=== PATIENT | male | born 1970 | race Caucasian/White ===

== ENCOUNTER 2022-08-10 13:37 | Emergency (ER) | payer MEDICAID, SELFPAY ==
[2022-08-10 13:59] VITALS: BMI 21.5
[2022-08-10 14:02] VITALS: BP 135/80; PULSE 107; RESP 18; TEMP 36.7; O2SAT 97
--- NOTE | 2022-08-10 16:58 | CTR_ITS ---
PROCEDURE INFORMATION: Exam: CT Abdomen And Pelvis Without Contrast Exam date and time: 08/10/2022 5:22 PM Age: 51 years old Clinical indication: Abdominal pain; Generalized TECHNIQUE: Imaging protocol: Computed tomography of the abdomen and pelvis without contrast. Sagittal and coronal reformatted images were created and reviewed. Radiation optimization: All CT scans at this facility use at least one of these dose optimization techniques: automated exposure control; mA and/or kV adjustment per patient size (includes targeted exams where dose is matched to clinical indication); or iterative reconstruction. REPORTING DATA: Count of CT and Cardiac NM exams in prior 12 months: This patient has received 0 known CTs and 0 known cardiac nuclear medicine studies in the 12 months prior to the current study. COMPARISON: CT angio chest PE protcl [id number] 06/02/2016 5:35 PM RADIATION DOSE METRICS: Total DLP (mGy-cm): 448 FINDINGS: Limitations: Evaluation of solid organs and vasculature is limited without intravenous contrast. Lungs: Visualized lungs are clear. Pleural spaces: No pleural effusion. Heart: Visualized portions of the heart are unremarkable. Liver: The liver is unremarkable. Gallbladder and bile ducts: The gallbladder is unremarkable. No biliary ductal dilatation. Pancreas: The pancreas is unremarkable. No pancreatic ductal dilatation. Spleen: The spleen is unremarkable. Adrenal glands: The right and left adrenal glands are unremarkable. Kidneys and ureters: The right and left kidneys are unremarkable. The right and left ureters are unremarkable. Stomach and bowel: Scattered diverticula in the colon. No evidence for diverticulitis. Appendix: The appendix is visualized and is unremarkable. No findings to suggest acute appendicitis. Intraperitoneal space: No free intraperitoneal air. No ascites. No loculated fluid collections to suggest an abscess. Vasculature: Mild atherosclerotic changes in the visualized arteries. No evidence for aortic aneurysm. Lymph nodes: No lymphadenopathy. Urinary bladder: Diffuse, mild wall thickening of the bladder. Reproductive: The prostate gland is mildly enlarged. Nonspecific parenchymal calcifications in the prostate gland. Bones/joints: Degenerative changes in the spine, sacroiliac joints, and hips. Mild spinal canal stenosis at L2-L3 through L5-S1. Multilevel foraminal stenosis of varying severity in the visualized spine. Grade I anterolisthesis of L4 on L5, likely due to facet degenerative change. Soft tissues: No acute abnormality in the extra-abdominal soft tissues. CT/CT abdomen pelvis wo con [id number] IMPRESSION: 1. Diffuse, mild wall thickening of the bladder. In the correct clinical setting, this may suggest cystitis. Recommend correlation with laboratory findings. Alternatively, this may be secondary to chronic outlet obstruction. 2. Scattered diverticula in the colon. No evidence for diverticulitis. 3. Incidental/nonacute findings are listed in the report.
[2022-08-10 17:07] LABS: Basophils % 0.9 %; Eosinophils # 0.1 10^3/uL (0.0-0.8); Eosinophils % 2.1 %; Hematocrit 47.9 % (42.0-52.0); Hemoglobin 16.2 g/dL (11.7-16.6); Lymphocytes # 1.2 10^3/uL (0.8-4.8); Lymphocytes % 25.3 %; Mean Corpuscular HGB Conc 33.8 g/dL (30.0-36.0); Mean Corpuscular Hemoglobin 31.8 pg (28.0-34.0); Mean Corpuscular Volume 94.1 fl (80-94); Mean Platelet Volume 8.7 fL (7.4-10.4); Monocytes # 0.3 10^3/uL (0.2-0.9); Monocytes % 7.1 %; Neutrophils # 3.01 10^3/uL (1.8-7.7); Neutrophils % 64.4 %; Nucleated Red Blood Cells % 0 %; Platelet Count 220 10^3/cmm (130-400); Red Blood Count 5.09 10^6/uL (4.1-5.3); White Blood Count 4.7 10^3/uL (4.0-10.0)
--- NOTE | 2022-08-10 17:22 | ED_ITS ---
Documented by User: Umer Roblero DO 08/11/22 06:17 HPI - Abdominal Pain General: Chief Complaint: Abdominal Pain Stated Complaint: abd pain, blood in stool Time Seen by Provider: 08/10/22 16:56 Source: patient Mode of arrival: ambulatory History of Present Illness: 51-year-old male presents emergency room complaining of 3 weeks of epigastric discomfort he says the occasional black stools with nausea vomiting very weak. States in the last month he has lost 20 pounds unaccounted for has made no effort. Denies any hematochezia melena hematemesis coffee-ground emesis no chest pain no shortness of breath. No dysuria urgency or frequency. Localizes the pain to the epigastric area. MD elicited complaint: abdominal pain Onset (ago): month(s) (1) Pain Consistency: constant Location: Diffuse Severity: moderate Quality: cramping Exacerbating factors: nothing Relieving factors: nothing Associated Symptoms: Denies anorexia, belching, bloating, change in bowel habits, change in stool character, chills, coffee ground emesis, constipation, GI cramping, diarrhea, dyspepsia, dysuria, excessive flatus, fever(s), heartburn, hematochezia, hematuria, hematemesis, fecal incontinence, loose stools, melena, nausea, poor appetite, syncope and vomiting Review of Systems Const: Denies: fever(s), chills, fatigue or malaise ENMT: Denies: throat pain, ear or mastoid pain, nasal discharge or nasal congestion Card: Denies: chest pain, palpitations, irregular heart rhythm, edema or syncope Resp: Denies: dyspnea, productive cough or non-productive cough GI: Reports: abdominal pain; Denies: nausea, vomiting, hematemesis, coffee ground emesis, heartburn, diarrhea, constipation, bloating, GI cramping, belching, excessive flatus, fecal incontinence, change in bowel habits, change in stool character, hematochezia or melena : Denies: dysuria, urinary frequency, urinary urgency or hematuria Musc: Reports: back pain Skin/Breast: Denies: rash or pruritus Physical Exam Const: COMMON NORMALS: no acute distress GENERAL APPEARANCE: cooperative and comfortable ORIENTATION/CONSCIOUSNESS: Yes awake, Yes oriented to person, Yes oriented to place and Yes oriented to time HENMT: COMMON NORMALS: normocephalic, atraumatic and hearing grossly normal bilaterally HEAD & SCALP: normocephalic and atraumatic Resp: COMMON NORMALS: normal respiratory effort, No retractions, No use of accessory muscles and clear to auscultation bilaterally AUSCULTATION: clear to auscultation bilaterally Cardio: COMMON NORMALS: regular rate, regular rhythm and No murmurs present (Cardio) RATE: regular rate RHYTHM: regular rhythm GI: COMMON NORMALS: No hepatosplenomegaly present AUSCULTATION: Yes normoactive bowel sounds PALPATION: Yes Tenderness to palpation present (GI) (Epigastric), No Guarding due to palpation present (GI) and Yes No hepatosplenomegaly present Extremity: COMMON NORMALS: normal to inspection, capillary refill normal, no clubbing, cyanosis or edema, no calf tenderness and no pedal edema Neuro: SENSORIUM/ORIENTATION: Yes oriented to person, Yes oriented to place and Yes oriented to time Skin: COMMON NORMALS: no rashes or lesions noted GENERAL SKIN EXAM: no rashes or lesions noted Course Vital Signs: Vital signs: Vital Signs Temperature 98.1 F 08/10/22 14:02 Pulse Rate 72 08/10/22 18:34 Respiratory Rate 18 08/10/22 17:42 Blood Pressure 135/80 08/10/22 14:02 Pulse Oximetry 100 08/10/22 17:42 Oxygen Delivery Me thod Room Air 08/10/22 17:42 MDM - Abdominal Pain Medical Decision Making Care signed out to Dr. Jj at change of shift. See final notes for diagnosis and disposition. Patient presented abdominal pain is likely gastric related he did have black stools after talking to him has been taking Pepto-Bismol likely causing the discoloration his rectal exam here was negative Hemoccult was negative his hemoglobin is normal patient stable for discharge he is to follow-up with PCP and return if worsening. Lab Data 08/10/22 17:02 08/10/22 17:02 Labs/Radiology: Radiology Impressions Abdomen/Pelvis CT 08/10/22 16:58 IMPRESSION: 1. Diffuse, mild wall thickening of the bladder. In the correct clinical setting, this may suggest cystitis. Recommend correlation with laboratory findings. Alternatively, this may be secondary to chronic outlet obstruction. 2. Scattered diverticula in the colon. No evidence for diverticulitis. 3. Incidental/nonacute findings are listed in the report. Laboratory Results WBC 4.7 10^3/uL (4.0-10.0) 08/10/22 17:02 RBC 5.09 10^6/uL (4.1-5.3) 08/10/22 17:02 Hgb 16.2 g/dL (11.7-16.6) 08/10/22 17:02 Hct 47.9 % (42.0-52.0) 08/10/22 17:02 MCV 94.1 fl (80-94) H 08/10/22 17:02 MCH 31.8 pg (28.0-34.0) 08/10/22 17:02 MCHC 33.8 g/dL (30.0-36.0) 08/10/22 17:02 RDW 13.0 % (12.1-15.1) 08/10/22 17:02 Plt Count 220 10^3/cmm (130-400) 08/10/22 17:02 MPV 8.7 fL (7.4-10.4) 08/10/22 17:02 Neut % (Auto) 64.4 % 08/10/22 17:02 Lymph % (Auto) 25.3 % 08/10/22 17:02 [place] % (Auto) 7.1 % 08/10/22 17:02 Eos % (Auto) 2.1 % 08/10/22 17:02 Baso % (Auto) 0.9 % 08/10/22 17:02 Neut # (Auto) 3.01 10^3/uL (1.8-7.7) 08/10/22 17:02 Lymph # (Auto) 1.2 10^3/uL (0.8-4.8) 08/10/22 17:02 [place] # (Auto) 0.3 10^3/uL (0.2-0.9) 08/10/22 17:02 Eos # (Auto) 0.1 10^3/uL (0.0-0.8) 08/10/22 17:02 Baso # (Auto) 0.0 10^3/uL (0.0-0.1) 08/10/22 17:02 Nucleated RBC % (auto) 0 % 08/10/22 17:02 Nucleated RBCs # 0.0 /100WBC 08/10/22 17:02 PT 12.80 SECONDS (12.1-14.9) 08/10/22 17:02 INR 0.93 (0.8-1.2) 08/10/22 17:02 APTT 29.5 SECONDS (23.9-36.7) 08/10/22 17:02 Sodium 133 mmol/L (136-145) L 08/10/22 17:02 Potassium 4.4 mmol/L (3.5-5.1) 08/10/22 17:02 Chloride 97 mmol/L (98-107) L 08/10/22 17:02 Carbon Dioxide 23 mmol/L (22-29) 08/10/22 17:02 Anion Gap 17.4 (5-19) 08/10/22 17:02 BUN 9 mg/dL (6-20) 08/10/22 17:02 Creatinine 0.7 mg/dL (0.7-1.2) 08/10/22 17:02 GFR Calculation 118.4 mL/min (90-130) 08/10/22 17:02 Glucose 90 mg/dL (65-115) 08/10/22 17:02 Calculated Osmolality 274 mOsm/kg (285-295) L 08/10/22 17:02 Calcium 9.3 mg/dL (8.5-10.5) 08/10/22 17:02 Total Bilirubin 0.2 mg/dL (0.15-1.2) 08/10/22 17:02 AST 35 U/L (0-40) 08/10/22 17:02 ALT 43 U/L (0-41) H 08/10/22 17:02 Alkaline Phosphatase 92 U/L (40-130) 08/10/22 17:02 Total Protein 7.5 g/dL (6.6-8.7) 08/10/22 17:02 Albumin 4.4 g/dL (3.5-5.2) 08/10/22 17:02 Globulin 3.1 g/dL (1.3-4.6) 08/10/22 17:02 Lipase 38 U/L (13-60) 08/10/22 17:02 Urine Color Yellow (Yellow) 08/10/22 17:45 Urine Appearance Clear (CLEAR) 08/10/22 17:45 Urine pH 5 (5-7) 08/10/22 17:45 Ur Specific [place] 1.015 (1.005-1.030) 08/10/22 17:45 Urine Protein Neg (Negative) 08/10/22 17:45 Urine Glucose (UA) Norm (Normal) 08/10/22 17:45 Urine Ketones Negative (Negative) 08/10/22 17:45 Urine Blood Neg (Negative) 08/10/22 17:45 Urine Nitrate Negative (Negative) 08/10/22 17:45 Urine Bilirubin Neg (Negative) 08/10/22 17:45 Urine Urobilinogen Neg mg/dL (Negative) 08/10/22 17:45 Ur Leukocyte Esterase Negative (Negative) 08/10/22 17:45 Discharge Plan Discharge Patient Disposition: Home Clinical Impression: Abdominal pain Condition: Stable Discharge Orders: Discharge ED (Routine); Ordered 08/10/22 Ordered By: Corky Jj Referrals: Cb Tilley MD [Primary Care Provider] - 1-3 days Discharge Diet: Advance as tolerated Discharge Activity: Resume usual activity Patient Instructions: Abdominal Pain (ED) Coding Level of Care Code ED End User Consultant for Chg Fwd Documented by User: Corky Jj MD 08/10/22 18:42 HPI - Abdominal Pain General: Chief Complaint: Abdominal Pain Stated Complaint: abd pain, blood in stool Time Seen by Provider: 08/10/22 16:56 History of Present Illness: . Course Vital Signs: Vital signs: Vital Signs Temperature 98.1 F 08/10/22 14:02 Pulse Rate 72 08/10/22 18:34 Respiratory Rate 18 08/10/22 17:42 Blood Pressure 135/80 08/10/22 14:02 Pulse Oximetry 100 08/10/22 17:42 Oxygen Delivery Me thod Room Air 08/10/22 17:42 MDM - Abdominal Pain Medical Decision Making Patient presented abdominal pain is likely gastric related he did have black stools after talking to him has been taking Pepto-Bismol likely causing the discoloration his rectal exam here was negative Hemoccult was negative his h emoglobin is normal patient stable for discharge he is to follow-up with PCP and return if worsening. Medical Records I reviewed the patient's medical records. Lab Data I reviewed the patient's lab results. 08/10/22 17:02 08/10/22 17:02 Labs/Radiology: Radiology Impressions Abdomen/Pelvis CT 08/10/22 16:58 IMPRESSION: 1. Diffuse, mild wall thickening of the bladder. In the correct clinical setting, this may suggest cystitis. Recommend correlation with laboratory findings. Alternatively, this may be secondary to chronic outlet obstruction. 2. Scattered diverticula in the colon. No evidence for diverticulitis. 3. Incidental/nonacute findings are listed in the report. Laboratory Results WBC 4.7 10^3/uL (4.0-10.0) 08/10/22 17:02 RBC 5.09 10^6/uL (4.1-5.3) 08/10/22 17:02 Hgb 16.2 g/dL (11.7-16.6) 08/10/22 17:02 Hct 47.9 % (42.0-52.0) 08/10/22 17:02 MCV 94.1 fl (80-94) H 08/10/22 17:02 MCH 31.8 pg (28.0-34.0) 08/10/22 17:02 MCHC 33.8 g/dL (30.0-36.0) 08/10/22 17:02 RDW 13.0 % (12.1-15.1) 08/10/22 17:02 Plt Count 220 10^3/cmm (130-400) 08/10/22 17:02 MPV 8.7 fL (7.4-10.4) 08/10/22 17:02 Neut % (Auto) 64.4 % 08/10/22 17:02 Lymph % (Auto) 25.3 % 08/10/22 17:02 [place] % (Auto) 7.1 % 08/10/22 17:02 Eos % (Auto) 2.1 % 08/10/22 17:02 Baso % (Auto) 0.9 % 08/10/22 17:02 Neut # (Auto) 3.01 10^3/uL (1.8-7.7) 08/10/22 17:02 Lymph # (Auto) 1.2 10^3/uL (0.8-4.8) 08/10/22 17:02 [place] # (Auto) 0.3 10^3/uL (0.2-0.9) 08/10/22 17:02 Eos # (Auto) 0.1 10^3/uL (0.0-0.8) 08/10/22 17:02 Baso # (Auto) 0.0 10^3/uL (0.0-0.1) 08/10/22 17:02 Nucleated RBC % (auto) 0 % 08/10/22 17:02 Nucleated RBCs # 0.0 /100WBC 08/10/22 17:02 PT 12.80 SECONDS (12.1-14.9) 08/10/22 17:02 INR 0.93 (0.8-1.2) 08/10/22 17:02 APTT 29.5 SECONDS (23.9-36.7) 08/10/22 17:02 Sodium 133 mmol/L (136-145) L 08/10/22 17:02 Potassium 4.4 mmol/L (3.5-5.1) 08/10/22 17:02 Chloride 97 mmol/L (98-107) L 08/10/22 17:02 Carbon Dioxide 23 mmol/L (22-29) 08/10/22 17:02 Anion Gap 17.4 (5-19) 08/10/22 17:02 BUN 9 mg/dL (6-20) 08/10/22 17:02 Creatinine 0.7 mg/dL (0.7-1.2) 08/10/22 17:02 GFR Calculation 118.4 mL/min (90-130) 08/10/22 17:02 Glucose 90 mg/dL (65-115) 08/10/22 17:02 Calculated Osmolality 274 mOsm/kg (285-295) L 08/10/22 17:02 Calcium 9.3 mg/dL (8.5-10.5) 08/10/22 17:02 Total Bilirubin 0.2 mg/dL (0.15-1.2) 08/10/22 17:02 AST 35 U/L (0-40) 08/10/22 17:02 ALT 43 U/L (0-41) H 08/10/22 17:02 Alkaline Phosphatase 92 U/L (40-130) 08/10/22 17:02 Total Protein 7.5 g/dL (6.6-8.7) 08/10/22 17:02 Albumin 4.4 g/dL (3.5-5.2) 08/10/22 17:02 Globulin 3.1 g/dL (1.3-4.6) 08/10/22 17:02 Lipase 38 U/L (13-60) 08/10/22 17:02 Urine Color Yellow (Yellow) 08/10/22 17:45 Urine Appearance Clear (CLEAR) 08/10/22 17:45 Urine pH 5 (5-7) 08/10/22 17:45 Ur Specific [place] 1.015 (1.005-1.030) 08/10/22 17:45 Urine Protein Neg (Negative) 08/10/22 17:45 Urine Glucose (UA) Norm (Normal) 08/10/22 17:45 Urine Ketones Negative (Negative) 08/10/22 17:45 Urine Blood Neg (Negative) 08/10/22 17:45 Urine Nitrate Negative (Negative) 08/10/22 17:45 Urine Bilirubin Neg (Negative) 08/10/22 17:45 Urine Urobilinogen Neg mg/dL (Negative) 08/10/22 17:45 Ur Leukocyte Esterase Negative (Negative) 08/10/22 17:45 Discharge Plan Discharge Patient Disposition: Home Clinical Impression: Abdominal pain Condition: Stable Discharge Orders: Discharge ED (Routine); Ordered 08/10/22 Ordered By: Corky Jj Referrals: Cb Tilley MD [Primary Care Provider] - 1-3 days Discharge Diet: Advance as tolerated Discharge Activity: Resume usual activity Patient Instructions: Abdominal Pain (ED) Coding Level of Care Code ED End User Consultant for Ghulam Fitzgerald
[2022-08-10 17:33] LABS: INR 0.93 (0.8-1.2); Partial Thromboplastin Time 29.5 SECONDS (23.9-36.7)
[2022-08-10 17:34] LABS: Alanine Aminotransferase 43 U/L (0-41); Albumin Level 4.4 g/dL (3.5-5.2); Alkaline Phosphatase 92 U/L (40-130); Anion Gap 17.4 (5-19); Aspartate Amino Transferase 35 U/L (0-40); Blood Urea Nitrogen 9 mg/dL (6-20); Calcium 9.3 mg/dL (8.5-10.5); Carbon Dioxide 23 mmol/L (22-29); Chloride 97 mmol/L (98-107); Globulin 3.1 g/dL (1.3-4.6); Glomerular Filtration Rate 118.4 mL/min (90-130); Glucose 90 mg/dL (65-115); Lipase 38 U/L (13-60); Osmolality Calculated 274 mOsm/kg (285-295); Potassium 4.4 mmol/L (3.5-5.1); Sodium 133 mmol/L (136-145); Total Bilirubin 0.2 mg/dL (0.15-1.2); Total Protein 7.5 g/dL (6.6-8.7)
[2022-08-10 17:42] VITALS: RESP 18; O2SAT 100
[2022-08-10 17:51] LABS: Add Urine Microscopic? NO; Charge for UA Resulting for Rev
[2022-08-10 18:19] LABS: Bilirubin Urine Neg (Negative); Blood Urine Neg (Negative); Glucose Urine UA Norm (Normal); Ketones Urine Negative (Negative); Leukocyte Esterase Urine Negative (Negative); Nitrate Urine Negative (Negative); Protein Urine Neg (Negative); Specific Gravity, Urine 1.015 (1.005-1.030); Urine Appearance Clear (CLEAR); Urine Color Yellow (Yellow); Urobilinogen Urine Neg (Negative); pH Urine 5 (5-7)
[2022-08-10 18:34] VITALS: PULSE 72
== END 2022-08-10 18:50 | disposition home or self-care (01) ==
PROVIDERS: Family Medicine; Emergency Provider Emergency Medicine; PCP Family Medicine
DX: R10.13 Epigastric pain (principal)
CPT/HCPCS: 74176; 80053; 81003; 83690; 85025; 85610; 85730; 99284

== ENCOUNTER 2023-07-06 18:55 | Inpatient (IN) | payer MEDICAID, SELFPAY ==
[2023-07-06] VITALS (8 sets, daily range): BP systolic 84–126; BP diastolic 52–90; PULSE 91–116; RESP 13–24; TEMP 36.6; O2SAT 91–100; BMI 21.5
[2023-07-06] MEDS: sodium chloride 0.9% 1,000 ML 999 ML IV ×3 (20:07→22:53)
[2023-07-06 20:27] LABS: Alanine Aminotransferase 88 U/L (0-41); Albumin Level 4.3 g/dL (3.5-5.2); Alkaline Phosphatase 88 U/L (40-130); Anion Gap 35.7 (5-19); Aspartate Amino Transferase 78 U/L (0-40); Calcium 8.6 mg/dL (8.5-10.5); Carbon Dioxide 15 mmol/L (22-29); Chloride 87 mmol/L (98-107); Creatinine Clr Calc Pharmacy 9.6416; Globulin 4.2 g/dL (1.3-4.6); Glomerular Filtration Rate 6.3 mL/min (90-130); Glucose 102 mg/dL (65-115); Lipase 28 U/L (13-60); Potassium 4.7 mmol/L (3.5-5.1); Sodium 133 mmol/L (136-145); Total Bilirubin 0.5 mg/dL (0.15-1.2); Total Protein 8.5 g/dL (6.6-8.7)
[2023-07-06 20:31] LABS: Basophils % 0.4 %; Hematocrit 41.8 % (37-53); Lymphocytes # 0.3 10^3/uL (0.8-4.8); Lymphocytes % 3.7 %; Mean Corpuscular Hemoglobin 32.3 pg (27-33); Mean Platelet Volume 10.1 fL (7.4-10.4); Monocytes % 25.4 %; Neutrophils # 5.51 10^3/uL (1.8-7.7); Neutrophils % 70.2 %; Nucleated Red Blood Cells % 0 %; Platelet Count 199 10^3/cmm (157-399); Red Cell Distribution Width 13.2 % (12.1-15.1); White Blood Count 7.84 10^3/uL (3.29-11.43)
--- NOTE | 2023-07-06 20:31 | XRR_ITS ---
PROCEDURE INFORMATION: Exam: XR Abdomen Exam date and time: 07/06/2023 9:07 PM Age: 52 years old Clinical indication: Abdominal pain; Generalized; Additional info: Abd pain TECHNIQUE: Imaging protocol: Radiologic exam of the abdomen. Views: Frontal supine view of the abdomen. 1 View. COMPARISON: CT abdomen pelvis con [id number] 08/10/2022 5:22 PM FINDINGS: Gastrointestinal tract: Multiple loops of dilated small bowel measuring up to 3 cm with relative paucity of air within the colon concerning for small bowel obstruction. Bones/joints: No evidence of acute osseous abnormality. XR/XR abdomen 1V* [id number] IMPRESSION: 1. Findings concerning for small bowel obstruction. Consider correlation with CT for further detail.
--- NOTE | 2023-07-06 20:56 | W.ED.ABDPA2 ---
HPI - Abdominal Pain General: Chief Complaint: Abdominal Pain Stated Complaint: Abd Pain Time Seen by Provider: 07/06/23 18:59 History of Present Illness: 52-year-old male presents emergency department via EMS personnel. EMS personnel state that patient is homeless and was laying on the ground waiting for them upon their arrival. Patient states that he has generalized abdominal pain and has had diarrhea for a very long time. He states that he smokes a pack and 1/2 to 2 packs of cigarettes daily and that he also ingested methamphetamine earlier today and yesterday. He denies chest pain or shortness of breath. He states he thinks he has not urinated as much as he normally does. Associated Symptoms: Reports nausea; Denies vomiting Review of Systems General: Reports: 10 or more systems reviewed and unremarkable except in HPI and below GI: Reports: abdominal pain and nausea; Denies: vomiting : Reports: oliguria [facility] ED PFSH: Medical History (Updated 07/06/23 @ 23:13 by Russel Milligan MD) Tobacco use disorder Alcohol use disorder Hypertension Surgical History (Updated 07/06/23 @ 23:15 by Russel Milligan MD) History of repair of ACL Family History (Updated 07/06/23 @ 23:16 by Russel Milligan MD) Mother Stroke Social History (Updated 07/06/23 @ 23:16 by Russel Milligan MD) Smoking and tobacco/nicotine status: current every day tobacco/nicotine user Alcohol intake: current Substance/Drug Use: current Physical Exam Narrative: EXAM NARRATIVE: Constitutional: the patient appears malodorous and unkept. Well nourished and of normal development. Vital signs as documented. No acute distress at present. Alert and oriented-to person, place, time and situation. Head, eyes, ears, nose, mouth, throat: Normocephalic, atraumatic. Pupils-equal, round, reactive to light. No scleral icterus. Normal-appearing external ears. Normal appearing nasal turbinates, no drainage. No obvious oral lesions, posterior oropharynx without erythema or exudates. Neck: Supple, trachea is midline, no lymphadenopathy, no jugular venous distension, thyromegaly, or carotid bruits. Carotid upstrokes are brisk bilaterally. Lungs: clear to auscultation to all lung maharaj. Symmetrical rise and fall of chest, no obvious signs of increased work of breathing at present. Cardiac: Regular rate and rhythm, positive S1, S2. No murmurs, rubs or gallops that I can appreciate Abdomen: Soft, mildly to palpation, hypo-active bowel sounds to all quadrants. No palpable masses, no organomegaly and abdominal bruits. Extremities: 2+ pulses in the upper extremities that are equal bilaterally, 2+ pulses in the lower extremities that are equal bilaterally. Non-edematous. Moves all extremities well, sensation to all extremities are noted. Skin: Warm, dry, intact. Course Vital Signs: Vital signs: Vital Signs Temperature 97.8 F 07/06/23 19:00 Pulse Rate 96 07/06/23 22:37 Respiratory Rate 13 07/06/23 22:37 Blood Pressure 84/52 07/06/23 22:37 Pulse Oximetry 98 07/06/23 22:05 Oxygen Delivery Me thod Room Air 07/06/23 19:00 MDM - Abdominal Pain Medical Decision Making Physical exam completed and documented I did obtain a CBC and a CMP which are essentially unremarkable, lipase was normal at 28, plain film of the abdomen did demonstrate concerns for small bowel obstruction. Patient's CMP did return with a BUN of 114 and a creatinine of 8.9 consistent with acute renal failure. Patient's CK level is elevated at 1261 concerning for rhabdomyolysis, the patient has received 2 L of IV fluid and I have contacted the hospitalist to request admission for additional evaluation treatment and care. Patient did receive a renal ultrasound, which did not demonstrate any acute obstruction. Patient does appear to be infested with bedbugs and although a CT abdomen pelvis would be extremely beneficial I did discuss with the hospital physician that we would have to delay obtaining the CT abdomen pelvis as it would shut down access and use to our CT scanner for the remainder of the emergency department until it was properly sanitized by an cognos report developer, this information was provided by the life science technician. I did request placement of a NG tube and have consulted Dr. Dee for general surgery. Medical Records I reviewed the patient's medical records. Lab Data I reviewed the patient's lab results. 07/06/23 20:05 07/06/23 20:05 Labs/Radiology: Radiology Impressions Abdomen X-Ray 07/06/23 20:31 IMPRESSION: 1. Findings concerning for small bowel obstruction. Consider correlation with CT for further detail. Laboratory Results WBC 7.84 10^3/uL (3.29-11.43) 07/06/23 20:05 RBC 4.40 10^6/uL (3.85-5.65) 07/06/23 20:05 Hgb 14.20 g/dL (11.27-16.99) 07/06/23 20:05 Hct 41.8 % (37-53) 07/06/23 20:05 MCV 95.0 fl (82-101) 07/06/23 20:05 MCH 32.3 pg (27-33) 07/06/23 20:05 MCHC 34.0 g/dL (30-55) 07/06/23 20:05 RDW 13.2 % (12.1-15.1) 07/06/23 20:05 Plt Count 199 10^3/cmm (157-399) 07/06/23 20:05 MPV 10.1 fL (7.4-10.4) 07/06/23 20:05 Neut % (Auto) 70.2 % 07/06/23 20:05 Lymph % (Auto) 3.7 % 07/06/23 20:05 [place] % (Auto) 25.4 % 07/06/23 20:05 Eos % (Auto) 0.0 % 07/06/23 20:05 Baso % (Auto) 0.4 % 07/06/23 20:05 Neut # (Auto) 5.51 10^3/uL (1.8-7.7) 07/06/23 20:05 Lymph # (Auto) 0.3 10^3/uL (0.8-4.8) L 07/06/23 20:05 [place] # (Auto) 2.0 10^3/uL (0.2-0.9) H 07/06/23 20:05 Eos # (Auto) 0.0 10^3/uL (0.0-0.8) 07/06/23 20:05 Baso # (Auto) 0.0 10^3/uL (0.0-0.1) 07/06/23 20:05 Nucleated RBC % (auto) 0 % 07/06/23 20: Nucleated RBCs # 0.0 /100WBC 07/06/23 20:05 D-Dimer 2.49 ug/mLFEU (0-0.59) H 07/06/23 22:48 Sodium 133 mmol/L (136-145) L 07/06/23 20:05 Potassium 4.7 mmol/L (3.5-5.1) 07/06/23 20:05 Chloride 87 mmol/L (98-107) L 07/06/23 20:05 Carbon Dioxide 15 mmol/L (22-29) L 07/06/23 20:05 Anion Gap 35.7 (5-19) H 07/06/23 20:05 BUN 114 mg/dL (6-20) H* D 07/06/23 20:05 Creatinine 8.9 mg/dL (0.7-1.2) H* 07/06/23 20:05 GFR Calculation 6.3 mL/min (90-130) L 07/06/23 20:05 Glucose 102 mg/dL (65-115) 07/06/23 20:05 Calculated Osmolality 312 mOsm/kg (285-295) H 07/06/23 20:05 Lactic Acid Cancelled 07/06/23 22:48 Calcium 8.6 mg/dL (8.5-10.5) 07/06/23 20:05 Total Bilirubin 0.5 mg/dL (0.15-1.2) 07/06/23 20:05 AST 78 U/L (0-40) H 07/06/23 20:05 ALT 88 U/L (0-41) H 07/06/23 20:05 Alkaline Phosphatase 88 U/L (40-130) 07/06/23 20:05 Creatine Kinase 1261 U/L (39-308) H* 07/06/23 20:05 Total Protein 8.5 g/dL (6.6-8.7) 07/06/23 20:05 Albumin 4.3 g/dL (3.5-5.2) 07/06/23 20:05 Globulin 4.2 g/dL (1.3-4.6) 07/06/23 20:05 Lipase 28 U/L (13-60) 07/06/23 20:05 Procalcitonin Cancelled 07/06/23 22:48 All radiology interpretation(s) finalized by discharge EKG Data EKG 1: Interpretation: Twelve-lead EKG obtained at 2123 and reviewed at 212 demonstrates sinus rhythm ventricular rate 90, DC interval 160, QRS duration 102, QT [address] elevation or depression at present. Discharge Plan Discharge Patient Disposition: Admitted As Inpatient Admit Provider: Russel Milligan Clinical Impression: Acute renal failure, Methamphetamine abuse, Abdominal pain, Continuous tobacco abuse, Acute renal failure due to rhabdomyolysis Condition: Stable Coding Level of Care Code ED Fixer Boarding Room for Ghulam Fitzgerald
[2023-07-06 20:57] LABS: Slide Review Slide Review Perform
[2023-07-06 21:01] LABS: Osmolality Calculated 312 mOsm/kg (285-295)
[2023-07-06 21:02] LABS: Blood Urea Nitrogen 114 mg/dL (6-20)
--- NOTE | 2023-07-06 21:18 | ECG_ITS ---
[facility] Test Date: 2023-07-06 Pat Name: Rei Aponte Department: Room: Gender: Male Well Logger: : 1970 Requested By: Arie Schaefer Order Number: [id number] Villanueva MD: Jani Haji M.D. Measurements Intervals [place] Rate: 90 P: 82 TN: 160 QRS: 86 QRSD: 102 T: 82 QT: 376 QTc: 461 Interpretive Statements SINUS RHYTHM Compared to ECG 06/04/2016 05:58:25 Early repolarization no longer present Electronically Signed On 07-08-2023 17:03:59 CDT by Jani Haji M.D. [id number]
--- NOTE | 2023-07-06 21:28 | USR_ITS ---
PROCEDURE INFORMATION: Exam: US Retroperitoneal; Complete; Kidneys and Bladder Exam date and time: 07/06/2023 10:21 PM Age: 52 years old Clinical indication: Other: Chronic abdominal pain and diarrhea, seen this er multiple times; Patient HX: Homeless , methamphetamine use, patient is currently infected with bed bugs, has not been treated for bed bugs at time of this exam. Patient had prior CT of abdomen and pelvis dated 08/10/2022 = inflammation of the urinary bladder. ; Additional info: Mark TECHNIQUE: Imaging protocol: Real-time ultrasound of the retroperitoneum with image documentation. Complete exam focused on the kidneys and bladder. COMPARISON: CT abdomen pelvis wo con [id number] 08/10/2022 5:22 PM FINDINGS: Right kidney: Right kidney measures 5.1 x 6.1 x 9.8 cm. No evidence of hydronephrosis. Renal echotexture is unremarkable. Left kidney: Left kidney measures 4.2 x 5.3 x 8.2 cm. No evidence of hydronephrosis. Renal echotexture is unremarkable. Urinary bladder: Prevoid bladder volume measures 17 cc. There is mild diffuse bladder wall thickening. Patient was not able to void despite attempts. Ureteral jets were not visualized. US/US renal BI* [id number] IMPRESSION: 1. No hydronephrosis of either kidney. 2. Diffuse bladder wall thickening, possibly sequela of chronic obstruction or cystitis. Patient was unable to void despite multiple attempts. Consider urologic evaluation.
--- NOTE | 2023-07-06 21:43 | P.HP_ITS ---
Providers/Chief Complaint 2 Primary Care Provider: Cb Tilley MD Chief Complaint: Abd Pain History of Present Illness Rei Aponte is a 52 year old male Medications/Allergies Allergies Allergy/AdvReac Type Severity Reaction Status Date / Time codeine Allergy Unknown Verified 07/06/23 19:05 Vitals/I&O/Wt Last Vital Signs Temp 97.8 F 07/06/23 19:00 Pulse 116 H 07/06/23 21:35 Resp 18 07/06/23 21:35 BP 93/68 07/06/23 21:35 Pulse Ox 94 07/06/23 21:35 O2 Del Method Room Air 07/06/23 19:00 07/06/23 07/06/23 07/06/23 06:59 14:59 22:59 Intake Total 1000 / 1000 Balance 1000 / 1000 Weight last 48 hrs Weight 68.039 kg Data 07/06/23 20:05 07/06/23 20:05 Coding Level of Care Code Acute Code for Chg Fwd
[2023-07-06 21:49] LABS: Creatine Phosphokinase 1261 U/L (39-308)
--- NOTE | 2023-07-06 22:06 | PC.NURSE ---
Patient found up walking around room, kicking door, and trying to removing monitoring equipment and IV. Patient stated he need to take a shit. Patient appeared angry and I informed him I would get him a bedside commode. Call light was in the bed where I had placed it and informed the patient of it's location upon his admission to the ED. I returned with a commode to find patient out of his bed again and sitting on top of the trashcan. No bowel movement had happened in trashcan. Patient placed on commode and back in bed once finished. Patient again informed of use of call light and it's location.
--- NOTE | 2023-07-06 22:46 | XRR_ITS ---
PROCEDURE INFORMATION: Exam: XR Abdomen Exam date and time: 07/06/2023 11:20 PM Age: 52 years old Clinical indication: Device placement; Gi device; Nasogastric tube; Additional info: Post-ng placement TECHNIQUE: Imaging protocol: Radiologic exam of the abdomen. Views: Frontal supine view of the abdomen. 1 View. COMPARISON: CR (ABDOMEN, ) 07/06/2023 9:07 PM FINDINGS: Tubes, catheters and devices: Nasogastric tube ends in the stomach. Gastrointestinal tract: No gastric distension. Scattered gas within the visualized small bowel. Bones/joints: Unremarkable. XR/XR abdomen 1V* [id number] IMPRESSION: NG tube ends in the stomach
[2023-07-06 22:53] LABS: Lactic Sepsis W/Reflex 1.2 mmol/L (0.5-2.2)
--- NOTE | 2023-07-06 22:54 | P.HP_ITS ---
Providers/Chief Complaint 2 Primary Care Provider: Cb Tilley MD Chief Complaint: Abd Pain History of Present Illness Rei Aponte is a 52 year old male with a past medical history of tobacco use disorder, alcohol use disorder, methamphetamine use disorder, and hypertension who presents emergency department with abdominal pain x 7 days. Patient is awake and alert but quite tangential at times making his history seems unreliable. He states he thinks he has an ulcer stomach that is progressively moved down to his kidneys. He rates the pain 50 out of 10 initially. He states that it has progressively worsened daily for the past week. Endorses associated symptoms of diarrhea. He notes that he took some methamphetamines orally before calling EMS today. He called EMS because the pain got so severe. In the emergency department, he was initially found to have soft blood pressure and was tachycardic. Labs revealed a fairly unremarkable CBC, renal failure with BUN 114, creatinine 8.9, HAGMA with bicarb of 15, transaminitis, and markedly elevated procalcitonin. Renal ultrasound was obtained to rule out hydronephrosis or obstruction which was preliminarily negative for rehabilitation therapy technician. Plain film of the abdomen was concerning for small bowel obstruction. Per ED provider, patient is unable to have CT scan this evening as he was found to have bedbugs and this would require the CT scan to be down for fumigation/cleaning. General surgery was consulted by ED provider and okay with admission with plans to get CT scan later when approved by radiology. Recommended NG tube placement. Patient denies any prior history of small bowel obstructions. Denies prior abdominal surgeries. Patient reports his only medical history is hypertension. He is not taking any medications. He reports he smokes 1 to 2 packs daily. He states he drinks 30 beers every 2 days. He states that he does not have withdrawal problems because he is always drunk. He reports he uses methamphetamines but orally. Denies injecting. Per initial report, patient was reportedly homeless. He denies SI on my evaluation. He tells me [place] a [place] but likes to walk around barefoot in the [place]. Review of Systems 2 Narrative: A complete review of systems was obtained and is negative except as stated in HPI. Medications/Allergies Allergies Allergy/AdvReac Type Severity Reaction Status Date / Time codeine Allergy Unknown Verified 07/06/23 19:05 PFSH Acute 2 PFSH: Medical History (Updated 07/06/23 @ 23:13 by Russel Milligan MD) Tobacco use disorder Alcohol use disorder Hypertension Surgical History (Updated 07/06/23 @ 23:15 by Russel Milligan MD) History of repair of ACL Family History (Updated 07/06/23 @ 23:16 by Russel Milligan MD) Mother Stroke Social History (Updated 07/06/23 @ 23:16 by Russel Milligan MD) Smoking and tobacco/nicotine status: current every day tobacco/nicotine user Alcohol intake: current Substance/Drug Use: current Vitals/I&O/Wt Last Vital Signs Temp 97.8 F 07/06/23 19:00 Pulse 96 07/06/23 22:37 Resp 13 07/06/23 22:37 BP 84/52 07/06/23 22:37 Pulse Ox 98 07/06/23 22:05 O2 Del Method Room Air 07/06/23 19:00 07/06/23 07/06/23 07/06/23 06:59 14:59 22:59 Intake Total 1000 / 1000 Balance 1000 / 1000 Weight last 48 hrs Weight 68.039 kg Physical Exam 2 Narrative: General: Patient is awake. Conversational. Seems to respond to external stimuli at times. Head: Mucous membranes are dry. Cachectic appearing. Frail-appearing. Neck: No JVD. Cardiovascular: Tachycardic. No gallops. No murmurs. No peripheral edema. Lungs: Breath sounds are diminished bilateral bases, no use of accessory muscles, no crackles or wheezes. Skin: No jaundice. Has multiple contusions on lower extremities. Skin is overall poorly kept. Abdomen: Hyperactive bowel sounds. Tender to palpation all 4 quadrants. Extremities: No cyanosis or clubbing. Musculoskeletal: Poor muscular development, normal range of motion, no swollen or erythematous joints. Neurological: Moves all 4 extremities. No myoclonus. Data 07/06/23 20:05 07/06/23 20:05 A&P Assessment and plan (1) Severe sepsis: Presentation consistent with severe sepsis Source unclear, unable to proceed with CT imaging presently due to bedbug situation Consider CT C/A/P after approved by radiology Blood cultures x 2 collected Check stool studies given diarrhea, although this could be from a SBO Sirs: Tachycardia with heart rate 116, tachypnea with respiratory rate 24 Endorgan damage: Renal failure MRSA swab Check procalcitonin Start broad-spectrum antibiotics with vancomycin and Zosyn Telemetry monitoring (2) Acute renal failure: Associated with high anion gap metabolic acidosis, hyponatremia/hypochloremia Admission BUN/creatinine 114/8.9 (previously 9/0.7 on 08/10/22) CK only mildly elevated 1261 Start progressive bicarb drip Follow-up final renal ultrasound Strict I's and O's via Dahl catheter Daily weights Check urinalysis Check urine electrolytes Will likely need nephrology consult pending response to treatment Qualifiers: Acute renal failure type: unspecified Qualified Code(s): N17.9 - Acute kidney failure, unspecified (3) Abdominal pain: Plain films concerning for possible SBO Diarrhea noted General surgery consulted by ED NG tube recommended by general surgery Lactate within normal limits Plan for CT when possible NG tube recommended by general surgery N.p.o. Antiemetics as needed Analgesics as needed Qualifiers: Abdominal location: generalized Qualified Code(s): R10.84 - Generalized abdominal pain (4) Alcohol use disorder: Reports history of withdrawal, currently drinking 30 beers every 2 days Start CIWA protocol Vitamin, thiamine, folic acid (5) Methamphetamine abuse: Last use was earlier today Would benefit from cessation (6) Infestation by bed bug: Contact precautions Topical steroids and antihistamines as needed for symptomatic care (7) Tobacco use disorder: He would benefit from tobacco cessation (8) Hypertension: Currently soft blood pressure At risk for shock given severe sepsis Monitor blood pressure and other vitals closely (9) Homelessness: Patient social situation including housing remains somewhat unclear Case management consultation Plan DVT prophylaxis: SCD for now CODE STATUS: Assume full code Attestations 2 Medical Necessity Statement*: Patient presents with abdominal pain, found to have multiple abnormalities including severe sepsis from somewhat unclear source, possible small bowel obstruction, severe renal failure, multiple other metabolic derangements with expected hospitalization to cross 2 midnights for IV antibiotics, IV hydration, general surgery evaluation, and supportive care. Critical Care Time: The high probability of a clinically significant, sudden or life threatening deterioration of the patient's circulatory systems with severe sepsis, renal failure system(s) required my full and direct attention, intervention and personal management. The critical care time is as shown. This time is in addition to time spent performing any reported procedures but includes the following: [x] Data and vital sign review and interpretation [x] Patient assessment, examination and intervention [x] Documentation [x] Medication orders and management Critical Care Time (min): 60 Coding Level of Care Code Acute Code for Chg Fwd Diagnoses Severe sepsis A41.9; R65.20 Acute renal failure N17.9 Acute renal failure type: unspecified Abdominal pain R10.84 Abdominal location: generalized Alcohol use disorder F10.90 Methamphetamine abuse F15.10 Infestation by bed bug B88.8 Tobacco use disorder F17.200 Hypertension I10 Homelessness Z59.00
[2023-07-06 23:15] LABS: D Dimer 2.49 ug/mLFEU (0-0.59)
[2023-07-06] MEDS: ondansetron 2 mg/ML SDV 2 mL 4 MG IVP (23:24)
--- OUTSIDE RECORDS SUMMARY | 2023-07-06 23:29 | XMS_ITS | Continuity of Care Document ---
Author Name Unknown Organization [facility] Address [address] [id number] [address] Phone Care Team Providers Care Cigar Head Holer Name Role Phone Unavailable Unavailable Unavailable Unavailable Unavailable Unavailable Medications Medication Instructions Dosage Effective Dates (start - stop) Status Comments hydrocodone 5 mg-acetaminophen 325 mg tablet take 1 tablet by oral route every 6 hours as needed for pain for post-op pain 1.00 tablet - Active lisinopril 2.5 mg tablet take 1 tablet by oral route every day 2.5 MG - Active Procedures Procedure Date Limited Oral Evaluation ??? Problem Focu sed Intraoral ??? Periapical First Film Extraction, Erupted Tooth Or Exposed Syeda t (Elevati Limited oral eval, x-ray & 1st extractio n $184 EDR Approval Note No Work Today/No Charge Advance Directives Directive Yes / No Effective Date File Name Resuscitation Not Answered N/A N/A Life Support Not Answered N/A N/A Intubation Not Answered N/A N/A Antibiotics Not Answered N/A N/A IV Fluid Support Not Answered N/A N/A Tube Feed Not Answered N/A N/A Other Directive N/A N/A WARNING:The information contained in this section is historical and is provided for information only and does not constitute a legal document or any assurance that the information is still accurate. Please verify the information with the villagomez of the legal document before using it for clinical purposes. Encounters Encounter Description Practice Location Reason(s) For Visit Diagnoses Date Provider Providers Copied on Encounter [facility], [id number] [facility], [place], [place], [id number], [place] tel:[phone] [facility] Dental examination 3 No Information [facility], [id number] [facility], [place], [place], [id number], [place] tel:[phone] [facility] Dental examination 3 No Information Family History Family Member Type Diagnosis Age At Onset No Information Payers Payer name Insurance type Covered constitution party ID Authoriza tion(s) No Information Social History Type Description Quantity Date Captured Comments Alcohol Use Details Caffeine Use Details Unknown Tobacco Use Status No Information Smoking Status Current every day smoker Smoking Tobacco Use Details Cigarette: No Details Available Cigarette: 0 Packs per day Sex Male Chief Complaint And Reason For Visit No Information Reason For Referral Reason For Referral No Information History Of Present Illness Encounter Date Complaint History Of Prese nt Illness No Information Functional Status Date Functional Assessmen t No Information Instructions Date Instruction Additional Infor mation No Information Assessments Type Assessment Date No Information Patient Care Teams Name Effective Dates (start - stop) Status Members No Information
[2023-07-06 23:52] LABS: Add Urine Microscopic? YES; Bilirubin Urine 1+ (Negative); Blood Urine 3+ (Negative); Glucose Urine UA Norm (Normal); Ketones Urine Negative (Negative); Leukocyte Esterase Urine Negative (Negative); Nitrate Urine Negative (Negative); Protein Urine 1+ (Negative); Specific Gravity, Urine 1.025 (1.005-1.030); Urine Appearance Hazy (CLEAR); Urine Color Dark Yellow (Yellow); Urobilinogen Urine Neg (Negative); pH Urine 5 (5-7)
[2023-07-06 23:53] LABS: Add Urine Culture? No; Amorphous Sediment Urine 3+ /hpf; Bacteria Urine 1+ /hpf; Coarse Granular Casts Urine 0-4 /lpf; Mucus Urine 3+ /hpf; RBC Urine 0-4 /hpf (0-2); Sperm Urine 1+ /hpf; Transitional Epi Cells Urine 0-4 /hpf; WBC Urine 0-4 /hpf (0-5)
[2023-07-06 23:54] LABS: Amphetamines Screen Urine Positive (Negative); Barbiturates Screen Urine Negative (Negative); Benzodiazepines Screen Urine Negative (Negative); Cocaine Screen Urine Negative (Negative); Opiate Screen Urine Negative (Negative); PCP Screen Urine Negative (Negative); THC Screen Urine Negative (Negative)
[2023-07-07] VITALS (78 sets, daily range): BP systolic 85–116; BP diastolic 53–85; PULSE 67–121; RESP 12–27; TEMP 36.6–36.8; O2SAT 81–100; BMI 21.7
[2023-07-07] MEDS: vancomycin 1,500 MG/300 ML PIGGYBACK 200 MG IV (01:07)
[2023-07-07] MEDS: LORazepam 2 mg/mL INJ 10 mL MDV IVP (01:07)
[2023-07-07] MEDS: sodium bicarbonate 150 MEQ in dextrose 5% 1,000 ML IV ×3 (01:33→21:39)
[2023-07-07] MEDS: piperacillin-tazobactam 3.375 GM in sodium chloride 0.9% (plus) 50 ML IV ×2 (02:56→13:32)
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
[2023-07-07 04:03] LABS: Basophils % 0.5 %; Hematocrit 34.8 % (37-53); Lymphocytes # 0.4 10^3/uL (0.8-4.8); Lymphocytes % 9.9 %; Mean Corpuscular HGB Conc 32.8 g/dL (30-55); Mean Corpuscular Hemoglobin 31.8 pg (27-33); Mean Corpuscular Volume 97.2 fl (82-101); Mean Platelet Volume 9.9 fL (7.4-10.4); Monocytes # 1.2 10^3/uL (0.2-0.9); Monocytes % 26.8 %; Neutrophils # 2.73 10^3/uL (1.8-7.7); Neutrophils % 62.6 %; Nucleated Red Blood Cells % 0 %; Platelet Count 159 10^3/cmm (157-399); Red Blood Count 3.58 10^6/uL (3.85-5.65); Red Cell Distribution Width 13.2 % (12.1-15.1); White Blood Count 4.36 10^3/uL (3.29-11.43)
[2023-07-07 04:28] LABS: Alanine Aminotransferase 68 U/L (0-41); Albumin Level 3.2 g/dL (3.5-5.2); Alkaline Phosphatase 64 U/L (40-130); Anion Gap 29.3 (5-19); Aspartate Amino Transferase 66 U/L (0-40); Calcium 7.1 mg/dL (8.5-10.5); Carbon Dioxide 15 mmol/L (22-29); Chloride 97 mmol/L (98-107); Creatinine Clr Calc Pharmacy 11.1732; Globulin 3.4 g/dL (1.3-4.6); Glomerular Filtration Rate 7.4 mL/min (90-130); Glucose 98 mg/dL (65-115); Magnesium 2.5 mg/dL (1.7-2.3); Potassium 4.3 mmol/L (3.5-5.1); Slide Review Slide Review Perform; Sodium 137 mmol/L (136-145); Total Bilirubin 0.5 mg/dL (0.15-1.2); Total Protein 6.6 g/dL (6.6-8.7)
[2023-07-07 04:44] LABS: Osmolality Calculated 322 mOsm/kg (285-295)
[2023-07-07 04:45] LABS: Blood Urea Nitrogen 120 mg/dL (6-20); Phosphorus 10.6 mg/dL (2.5-4.5)
[2023-07-07] MEDS: pantoprazole 40 mg SDV IVP (05:23)
[2023-07-07 05:51] LABS: Potassium, Radom Urine 27 mmol/L; Urine Random Sodium 67 mmol/L
[2023-07-07 06:00] LABS: Urine Random Chloride 10 mmol/L
--- OUTSIDE RECORDS SUMMARY | 2023-07-07 06:23 | XMS_ITS | Continuity of Care Document ---
Author Name Unknown Organization [facility] Address [address] [id number] [address] Phone Care Team Providers Care Awning Maker Name Role Phone Unavailable Unavailable Unavailable Unavailable [...] Diagnoses Date Provider Providers Copied on Encounter [facility], [id number] [facility], [place], [place], [id number], [place] tel:[phone] [facility] Dental examination 3 No Information [facility], [id number] [facility], [place], [place], [id number], [place] tel:[phone] [facility] Dental examination 3 [...]
[2023-07-07] MEDS: multivitamin therapeutic Tablet 1 TAB PO (08:50)
[2023-07-07] MEDS: folic acid 1 mg Tablet PO (08:50)
[2023-07-07] MEDS: thiamine 100 mg Tablet PO (08:50)
[2023-07-07 09:04] LABS: Alcohol Level < 10 mg/dL (0-10); Creatine Phosphokinase 985 U/L (39-308)
--- NOTE | 2023-07-07 09:41 | P.CONIM_ITS ---
Providers/Reason For Consult 2 Consulting Physician/Specialty*: kommana/Nephrology Reason for Consult*: ISAURA Attending Physician: Russel Milligan MD Primary Care Provider: Cb Tilley MD History of Present Illness History of Present Illness Rei Aponte is a 52 year old male With past medical history of hypertension, chronic smoker, alcohol use and methamphetamine use, presented to the emergency department due to nausea and abdominal pain going on for few days. Also complained of some diarrhea. In the emergency department abnormal labs included BUN of 114 creatinine of 8.9 serum bicarbonate was low at 15 and has transaminitis. Renal ultrasound without any hydronephrosis. There was question small bowel obstruction on the abdominal x-ray. Patient was supposed to take lisinopril for his blood pressure but was not taking. He is also homeless. Overnight he was started on bicarbonate drip and his creatinine has improved to 7.7. He currently denies any complaints Review of Systems 2 Narrative: Other ROS negative Medications/Allergies Home Medications Medication Instructions Recorded Confirmed Last Taken Type lisinopril 20 mg tablet 20 mg PO BID 07/07/23 07/07/23 Unknown History Allergies Allergy/AdvReac Type Severity Reaction Status Date / Time codeine Allergy Unknown Verified 07/06/23 19:05 Current Medications Generic Name Dose Route Start Last Admin Trade Name Freq PRN Reason Stop Dose Admin Folic Acid 1 mg 07/07/23 09:00 07/07/23 08:50 Folic Acid 1 Mg Tablet PO 1 mg DAILY BLANCA Administration Sodium Bicarbonate 150 meq/ 1,150 mls @ 150 mls/hr 07/07/23 00:22 07/07/23 01:33 Dextrose IV 150 mls/hr .[id number] BLANCA Administration Piperacillin Sod/Tazobactam 50 mls @ 12.5 mls/hr 07/07/23 02:00 07/07/23 08:34 Sod 3.375 gm/ Sodium Chloride IV Infused BID@0200,1400 BLANCA Infusion Lorazepam 2 mg 07/07/23 00:22 07/07/23 01:07 Lorazepam 2 Mg/Ml Inj 10 Ml Mdv IVP 2 mg PRN PRN Administration WITHDRAWAL Protocol Multivitamins Therapeutic 1 tab 07/07/23 09:00 07/07/23 08:50 Multivitamin Therapeutic Tablet PO 1 tab DAILY BLANCA Administration Pantoprazole Sodium 40 mg 07/07/23 06:00 07/07/23 05:23 Pantoprazole 40 Mg Sdv IVP 40 mg Q24H BLANCA Administration Thiamine Mononitrate 100 mg 07/07/23 09:00 07/07/23 08:50 Thiamine 100 Mg Tablet PO 100 mg DAILY BLANCA Administration PFSH Acute 2 PFSH: Medical History (Updated 07/06/23 @ 23:13 by Russel Milligan MD) Tobacco use disorder Alcohol use disorder Hypertension Surgical History (Updated 07/06/23 @ 23:15 by Russel Milligan MD) History of repair of ACL Family History (Updated 07/06/23 @ 23:16 by Russel Milligan MD) Mother Stroke Social History (Updated 07/06/23 @ 23:16 by Russel Milligan MD) Smoking and tobacco/nicotine status: current every day tobacco/nicotine user Alcohol intake: current Substance/Drug Use: current Vitals/I&O/Wt Last Vital Signs Temp 97.8 F 07/07/23 04:00 Pulse 91 07/07/23 08:00 Resp 16 07/07/23 08:00 BP 90/64 07/07/23 08:00 Pulse Ox 100 07/07/23 08:00 O2 Del Method Room Air 07/07/23 08:00 07/06/23 07/07/23 07/07/23 22:59 06:59 14:59 Intake Total 1999 1120 / 3120 50 / 50 Output Total 650 / 650 Balance 1999 470 / 2470 50 / 50 Weight last 48 hrs Weight 68.492 kg Weight 68.492 kg Weight 68.5 kg Weight 68.039 kg Physical Exam 2 Narrative: awake , alert HEENT S1S2 RRR per report Lungs clear per report no edema Urinary Catheter Management: Dahl: Cath Placed During This Visit: yes Reason for Continuing Indwelling Catheter: Accurate Measurement of Urinary Output in Critically Ill Patients Urinary Catheter Date of Insertion: 07/07/23 Urinary Catheter Time of Insertion: 05:21 Data 07/07/23 03:40 07/07/23 03:40 Micro: Microbiology 07/06/23 22:53 Blood Culture - Preliminary Blood SPECIMEN COLLECTED 07/06/23 22:48 Blood Culture - Preliminary Blood SPECIMEN COLLECTED A&P Assessment and plan (1) Acute renal failure: 1. Acute kidney injury: Baseline creatinine was normal about a year ago. Patient now presented with severe ISAURA associated with severe metabolic acidosis and uremia. Etiology likely prerenal in the setting of decreased p.o. intake, rhabdomyolysis. -Agree with bicarbonate infusion until the serum bicarbonate above 20, urine output slowly picking up, renal function improving, no indication for dialysis -Continue to monitor, avoid nephrotoxins and IV contrast studies, 2. Metabolic acidosis: With a high anion gap in the setting of rhabdo and ISAURA, continue bicarbonate drip 3. Rhabdomyolysis: Mild, trend CK levels 4. Hyperphosphatemia: Continue to monitor, should improve once renal function improves 5. History of hypertension, holding lisinopril 6. Question small bowel obstruction, he is n.p.o. with NG tube suction Patient evaluated using audiovisual cart. Time spent 40 minutes. Qualifiers: Acute renal failure type: unspecified Qualified Code(s): N17.9 - Acute kidney failure, unspecified Consult Attestations 2 Medical Necessity Statement: per medicine Coding Level of Care Code Acute Code for [facility] Diagnoses Acute renal failure N17.9 Acute renal failure type: unspecified
[2023-07-07] MEDS: nicotine 21 mg Patch 1 PATCH TRANSDERMA (10:23)
--- NOTE | 2023-07-07 11:02 | P.PN_ITS ---
Subjective 2 Subjective: Patient admitted overnight for sepsis and severe ISAURA. He was seen at his bedside and continues to report on and off abdominal pain. He also continues to have diarrhea. He has no other complaints . Medications: Reviewed: Yes Vitals/I&O/Wt Last Vital Signs Temp 97.8 F 07/07/23 04:00 Pulse 91 07/07/23 08:00 Resp 16 07/07/23 08:00 BP 90/64 07/07/23 08:00 Pulse Ox 100 07/07/23 08:00 O2 Del Method Room Air 07/07/23 08:00 07/06/23 07/07/23 07/07/23 22:59 06:59 14:59 Intake Total 1999 1120 / 3120 350 / 350 Output Total 650 / 650 Balance 1999 470 / 2470 350 / 350 Weight last 48 hrs Weight 68.492 kg Weight 68.492 kg Weight 68.5 kg Weight 68.039 kg Physical Exam 2 Const: COMMON NORMALS: no acute distress, patient oriented x3 and alert HENMT: COMMON NORMALS: normocephalic, atraumatic, external ears normal, Normal external nose present, moist oral mucous membranes and oropharynx normal HEAD & SCALP: normocephalic and atraumatic NOSE: Normal external nose present E XTERNAL EAR: Yes external ears normal Eye: COMMON NORMALS: Equal, round and reactive pupils present, EOMs intact bilaterally, conjunctivae normal and no scleral icterus CONJUNCTIVA: Yes conjunctivae normal PUPIL: Yes Equal, round and reactive pupils present Neck/C-Spine: COMMON NORMALS: full ROM, no lymphadenopathy and no JVD Chest: COMMONS NORMALS: normal inspection of the chest Resp: COMMON NORMALS: normal respiratory effort and clear to auscultation bilaterally AUSCULTATION: clear to auscultation bilaterally OTHER: No wheezes or crcakles Cardio: COMMON NORMALS: no JVD, regular rate, regular rhythm, S1 normal heart sound present and S2 normal heart sound present RATE: regular rate RHYTHM: regular rhythm HEART SOUNDS: S1 normal heart sound present and S2 normal heart sound present GI: OTHER: Soft, generalized tenderness, no rebound or guarding, bowel sounds present Extremity: COMMON NORMALS: normal to inspection and no pedal edema Neuro: COMMON NORMALS: patient oriented x3 SENSORIUM/ORIENTATION: Yes alert OTHER: No gross focal deficits Urinary Catheter Management: Dahl: Cath Placed During This Visit: yes Reason for Continuing Indwelling Catheter: Accurate Measurement of Urinary Output in Critically Ill Patients Urinary Catheter Date of Insertion: 07/07/23 Urinary Catheter Time of Insertion: 05:21 Data 07/07/23 03:40 07/07/23 03:40 Micro: Microbiology 07/06/23 22:53 Blood Culture - Preliminary Blood SPECIMEN COLLECTED 07/06/23 22:48 Blood Culture - Preliminary Blood SPECIMEN COLLECTED A&P Assessment and plan (1) Severe sepsis: -Patient presented with signs of severe sepsis -Source is not very clear but likely GI. Patient having abdominal pain, diarrhea, suspected bowel obstruction -Blood pressure improved although still on the low side -He is currently on broad-spectrum antibiotics with vancomycin and Zosyn -Blood cultures pending -Will get CT of the chest abdomen and pelvis for further evaluation -Check stool studies, C. difficile -Continue supportive care, IVFs, close cardiopulmonary monitoring (2) Acute renal failure: # Elevated anion gap metabolic acidosis -likely prerenal etiology in the setting of GI loss. Rhabdomyolysis is also a possibility his CK is elevated although trending down today. Patient denies use of toxic alcohols. No evidence of obstruction on renal ultrasound -Creatinine is trending down today, he still has metabolic acidosis -Nephrology consulted -Continue strict I's and O's, avoid nephrotoxic medications -Bicarb infusion -Trend renal function tests Qualifiers: Acute renal failure type: unspecified Qualified Code(s): N17.9 - Acute kidney failure, unspecified (3) Abdominal pain: # Suspected small bowel obstruction -Abdominal x-rays showed suspected SBO -Still has NGT in place -General surgery consulted -Continue n.p.o. status -ct supportive care Qualifiers: Abdominal location: generalized Qualified Code(s): R10.84 - Generalized abdominal pain (4) Alcohol use disorder: - Continue CIWA protocol , multivitamin, thiamine, folic acid (5) Methamphetamine abuse: -Encourage cessation -Social work consult (6) Infestation by bed bug: Contact precautions Topical steroids and antihistamines as needed for symptomatic care (7) Tobacco use disorder: -Continue to encourage cessation (8) Hypertension: -Hold antihypertensives due to sepsis (9) Homelessness: Patient social situation including housing remains somewhat unclear Case management consultation Plan # Elevated D-dimer -Patient at this time does not have signs of PE -He also has severe ISAURA so cannot get a contrast -Continue to monitor DVT prophylaxis: Heparin Attestations 2 Medical Necessity Statement*: Patient is critically ill with severe sepsis, acute kidney injury. He requires continued inpatient stay for IV fluids, IV antibiotics and close cardiopulmonary monitoring. Coding Level of Care Code Acute Code for [facility] Fwd Diagnoses Severe sepsis A41.9; R65.20 Acute renal failure N17.9 Acute renal failure type: unspecified Abdominal pain R10.84 Abdominal location: generalized Alcohol use disorder F10.90 Methamphetamine abuse F15.10 Infestation by bed bug B88.8 Tobacco use disorder F17.200 Hypertension I10 Homelessness Z59.00
--- NOTE | 2023-07-07 11:25 | CT_ITS ---
WS: [id number] CT CHEST, ABDOMEN AND PELVIS WITHOUT CONTRAST HISTORY: sepsis TECHNIQUE: Contiguous 5 mm axial imaging performed through the chest, abdomen and pelvis without IV c ontrast, oral contrast has not been provided. Coronal and sagittal reformats chest. Coronal and sagit monica reformats through the abdomen and pelvis. All CT scans at [facility] use at least one of these dose optimization techniques: automated exposure control; mA and/or kV adjustment per patient s ize (includes targeted exams where dose is matched to clinical indication); or iterative reconstructi on. CONTRAST: None DLP: 571.78 mGy.cm COMPARISON: None available. Chest CT: No pneumonia. No pulmonary mass or nodule. Mild dependent changes at the lung bases. Heart size is normal. Mild atherosclerosis aorta. No mediastinal or hilar adenopathy identified on this une nhanced exam. Abdomen CT: Diffuse moderate hepatic steatosis. Heterogeneity with layering in the gallbladder. Suspe ct there is sludge present in the gallbladder from stasis. This is a new finding since 08/10/2022. No bile duct dilatation. Normal spleen and pancreas. No adrenal mass. No renal obstruction. No perinephr ic stranding of any significance around either kidney. Mild atherosclerosis aorta. Stomach is not distended. There is mild increased amount of air throughout the GI tract. No obstructi on. This is most likely an ileus pattern. No free fluid or free air. The appendix is normal. Pelvic CT: No free fluid in the pelvis. Dahl catheter present in a nondistended bladder. No soft tis rich mass. Mild increase in thoracic kyphosis. L4 anterolisthesis by 3 mm. IMPRESSION: 1. Mild diffuse ileus. There is increased fluid and air in the small bowel and colon. No obstructive pattern. 2. No pneumonia. 3. No free air identified. No free fluid or ascites. 4. Mild heterogeneity within the gallbladder is probably due to terminal manager fasting state and cholesta sis. There is no duct dilatation. The gallbladder can be further evaluated by ultrasound. 5. No renal obstruction.
[2023-07-07 11:42] LABS: Albumin Level 3.4 g/dL (3.5-5.2); Anion Gap 25.7 (5-19); Calcium 7.1 mg/dL (8.5-10.5); Carbon Dioxide 19 mmol/L (22-29); Chloride 98 mmol/L (98-107); Creatinine Clr Calc Pharmacy 13.8757; Glomerular Filtration Rate 9.5 mL/min (90-130); Glucose 113 mg/dL (65-115); Phosphorus 7.4 mg/dL (2.5-4.5); Potassium 3.7 mmol/L (3.5-5.1); Sodium 139 mmol/L (136-145)
[2023-07-07 11:44] LABS: Blood Urea Nitrogen 103 mg/dL (6-20)
[2023-07-07] MEDS: LORazepam 2 mg Tablet PO ×2 (14:16→21:43)
--- NOTE | 2023-07-07 14:45 | P.CONIM_ITS ---
Providers/Reason For Consult 2 Consulting Physician/Specialty*: Dr. Ethan Dee, DO/General surgery Reason for Consult*: SBO Attending Physician: Neymar Sargent MD Primary Care Provider: Cb Tilley MD History of Present Illness History of Present Illness Rei Aponte is a 52 year old male who presented to the hospital with abdominal pain and positive amphetamines on a urine drug screen. He reports that he was on the side of the road and getting terrible lower abdominal pain that radiated up to his upper abdomen. He reports that these pains have been intermittent for the months now. Nothing seems to make the pain better or worse. He does report some diarrhea but denies any nausea, emesis, constipation, hematochezia and/or melena. An NG tube was placed in the ER. Review of Systems 2 General: Reports: 10 or more systems reviewed and unremarkable except in HPI and below Medications/Allergies Home Medications Medication Instructions Recorded Confirmed Last Taken Type lisinopril 20 mg tablet 20 mg PO BID 07/07/23 07/07/23 Unknown History Allergies Allergy/AdvReac Type Severity Reaction Status Date / Time codeine Allergy Unknown Verified 07/06/23 19:05 Current Medications Generic Name Dose Route Start Last Admin Trade Name Freq PRN Reason Stop Dose Admin Acetaminophen 1,000 mg 07/07/23 00:30 07/07/23 21:42 Acetaminophen 500 Mg Tablet PO 1,000 mg Q6H PRN Administration Mild/Mod Pain Or Temp >/= 101 Folic Acid 1 mg 07/07/23 09:00 07/07/23 08:50 Folic Acid 1 Mg Tablet PO 1 mg DAILY BLANCA Administration Piperacillin Sod/Tazobactam 50 mls @ 12.5 mls/hr 07/07/23 02:00 07/08/23 05:53 Sod 3.375 gm/ Sodium Chloride IV Infused BID@0200,1400 BLANCA Infusion Doxycycline Hyclate 100 mg/ 100 mls @ 100 mls/hr 07/07/23 19:00 07/08/23 06:00 Sodium Chloride IV 100 mls/hr Q12H BLANCA Administration Protocol Lorazepam 2 mg 07/07/23 00:22 07/08/23 05:58 Lorazepam 2 Mg Tablet PO 2 mg Q4H PRN Administration WITHDRAWAL Protocol Lorazepam 2 mg 07/07/23 00:22 07/07/23 01:07 Lorazepam 2 Mg/Ml Inj 10 Ml Mdv IVP 2 mg PRN PRN Administration WITHDRAWAL Protocol Multivitamins Therapeutic 1 tab 07/07/23 09:00 07/07/23 08:50 Multivitamin Therapeutic Tablet PO 1 tab DAILY BLANCA Administration Nicotine 1 patch 07/07/23 09:15 07/07/23 10:23 Nicotine 21 Mg Patch TRANSDERMA 1 patch DAILY BLANCA Administration Pantoprazole Sodium 40 mg 07/07/23 06:00 07/08/23 05:51 Pantoprazole 40 Mg Sdv IVP 40 mg Q24H BLANCA Administration Thiamine Mononitrate 100 mg 07/07/23 09:00 07/07/23 08:50 Thiamine 100 Mg Tablet PO 100 mg DAILY BLANCA Administration PFSH Acute 2 PFSH: Medical History Tobacco use disorder Alcohol use disorder Hypertension Surgical History History of repair of ACL Family History Mother Stroke Social History Smoking and tobacco/nicotine status: current every day tobacco/nicotine user Alcohol intake: current Substance/Drug Use: current Vitals/I&O/Wt Last Vital Signs Temp 98.1 F 07/08/23 04:00 Pulse 62 07/08/23 06:00 Resp 12 07/08/23 06:00 BP 109/74 07/08/23 06:00 Pulse Ox 94 07/08/23 06:00 O2 Del Method Room Air 07/08/23 06:00 07/07/23 07/08/23 07/08/23 22:59 06:59 14:59 Intake Total 1700 / 3200 1600 / 4800 Output Total 1200 / 1700 850 / 2550 Balance 500 / 1500 750 / 2250 Weight last 48 hrs Weight 160 lb Weight 151 lb Weight 151 lb Weight 151 lb 0.266 oz Weight 150 lb Physical Exam 2 Narrative: General : Patient is well developed , no acute distress, oriented x but is confabulating Head : Normal cephalic, a-traumatic. Ears : Pinnae and external canal are normal. Hearing is normal. Eyes : PERRLA, Sclera and injection are normal. No conjunctival discharge. Nose : Mucous membranes are without erythema. Throat : buccal mucosa is normal, gums are without significant recession or hypertrophy. Lungs : Equal chest rise bilaterally, no use of accessory muscles, trachea is midline. Cor : Rate and rhythm are normal. Abdomen : Soft, ND, NT, no g/r/m Extremities : No edema, no cyanosis or clubbing, dorsalis pedis pulses are present bilaterally, non-tender to palpation of calves. Upper extremities are normal bilaterally. Back : non-tender to palpation, no CVA tenderness. Neuro : CN II - XII intact, Upper and lower extremities have equal and full strength Urinary Catheter Management: Dahl: Cath Placed During This Visit: yes Reason for Continuing Indwelling Catheter: Accurate Measurement of Urinary Output in Critically Ill Patients Urinary Catheter Date of Insertion: 07/07/23 Urinary Catheter Time of Insertion: 05:21 Data 07/08/23 04:24 07/08/23 04:24 Micro: Microbiology 07/06/23 22:48 Blood Culture - Preliminary Blood NEGATIVE TO DATE 07/06/23 22:53 Blood Culture - Preliminary Blood NEGATIVE TO DATE A&P Assessment and plan (1) Abdominal pain: Qualifiers: Abdominal location: generalized Qualified Code(s): R10.84 - Generalized abdominal pain (2) Homelessness: (3) Diarrhea: (4) Infestation by bed bug: Plan His abdominal symptoms are vague and possibly fictitious. His abdominal exam was benign for me Stool studies CT abdomen pelvis pending Further recommendations pending results of CT Continue NGT to LIWS Medical management per hospitalist Coding Level of Care Code 01612 Diagnoses Abdominal pain R10.84 Abdominal location: generalized Homelessness Z59.00 Diarrhea R19.7 Infestation by bed bug B88.8
--- NOTE | 2023-07-07 14:56 | PC.NURSE ---
NG tube Patient pulled out NG tube, currently refusing to let nurse replace it.
[2023-07-07] MEDS: doxycycline 100 MG in sodium chloride 0.9% (plus) 100 ML IV (19:59)
--- NOTE | 2023-07-07 21:29 | PC.NURSE ---
Clear Liquid Diet: Contacted Dr. Milligan regarding no diet order. Notified of CT results. New order to start Clear Liquid Diet. Pt educated to take small sips and to report any abdominal pain.
[2023-07-07] MEDS: acetaminophen 500 mg Tablet 1000 MG PO (21:42)
[2023-07-08] VITALS (18 sets, daily range): BP systolic 90–127; BP diastolic 62–85; PULSE 62–102; RESP 12–21; TEMP 36.4–36.7; O2SAT 92–100
[2023-07-08] MEDS: piperacillin-tazobactam 3.375 GM in sodium chloride 0.9% (plus) 50 ML IV (01:24)
[2023-07-08 04:33] LABS: Hematocrit 32.6 % (37-53); Mean Corpuscular HGB Conc 34.7 g/dL (30-55); Mean Corpuscular Hemoglobin 32.3 pg (27-33); Mean Corpuscular Volume 93.1 fl (82-101); Mean Platelet Volume 9.7 fL (7.4-10.4); Platelet Count 163 10^3/cmm (157-399); White Blood Count 6.28 10^3/uL (3.29-11.43)
[2023-07-08 05:06] LABS: Alanine Aminotransferase 53 U/L (0-41); Alkaline Phosphatase 59 U/L (40-130); Aspartate Amino Transferase 42 U/L (0-40); Blood Urea Nitrogen 78 mg/dL (6-20); Calcium 7.3 mg/dL (8.5-10.5); Carbon Dioxide 29 mmol/L (22-29); Chloride 94 mmol/L (98-107); Creatinine Clr Calc Pharmacy 25.3028; Globulin 3.2 g/dL (1.3-4.6); Glucose 116 mg/dL (65-115); Osmolality Calculated 306 mOsm/kg (285-295); Sodium 136 mmol/L (136-145); Total Bilirubin 0.5 mg/dL (0.15-1.2); Total Protein 6.2 g/dL (6.6-8.7)
[2023-07-08 05:08] LABS: Absolute Eosinophils 0.3 10^3/cmm (0.0-0.7); Absolute Neutrophil 3.6 10^3/cmm (1.4-6.5); Absolute Segmented Neutrophil 2.9 10/cmm (1.6-7.1); Band Neutrophils Absolute 0.8 10^3/cmm (0.0-1.2); Eosinophils 5 %; Lymphocytes 18 %; Monocytes Absolute 1.2 10^3/cmm (0.1-0.6); Platelet Estimate Normal (Normal); Segmented Neutrophils 46 %; Slide Review Slide Review Perform; Total Cells Counted 100 (0-100)
--- NOTE | 2023-07-08 05:15 | PC.NURSE ---
Low K+: Dr. Milligan notified of K+ 3.0. New order for 40meq KCL PO ONCE NOW.
[2023-07-08] MEDS: potassium chloride ER 20 mEq Tablet 40 MEQ PO (05:51)
[2023-07-08] MEDS: pantoprazole 40 mg SDV IVP (05:51)
[2023-07-08] MEDS: LORazepam 2 mg Tablet PO (05:58)
[2023-07-08] MEDS: doxycycline 100 MG in sodium chloride 0.9% (plus) 100 ML IV ×2 (06:00→18:38)
[2023-07-08] MEDS: sodium bicarbonate 150 MEQ in dextrose 5% 1,000 ML IV (06:28)
[2023-07-08] MEDS: nicotine 21 mg Patch 1 PATCH TRANSDERMA (08:53)
[2023-07-08] MEDS: thiamine 100 mg Tablet PO (08:53)
[2023-07-08] MEDS: dextrose 5%-sod chloride 0.9% 1,000 ML 100 ML IV (08:53)
[2023-07-08] MEDS: folic acid 1 mg Tablet PO (08:53)
[2023-07-08] MEDS: multivitamin therapeutic Tablet 1 TAB PO (08:53)
[2023-07-08 09:45] LABS: C.Diff PCR (Lab) NEGATIVE (Negative)
--- NOTE | 2023-07-08 12:20 | PM.PN ---
Subjective Subjective: No acute events overnight. He was seen at his bedside and continues to report on and off abdominal pain, improved today. NGT removed, patient started on clear liquid diet. Diarrhea is improved. He has no other complaints . Medications: Reviewed: Yes Vitals/I&O/Wt Last Vital Signs Temp 98.1 F 07/08/23 04:00 Pulse 94 07/08/23 09:00 Resp 18 07/08/23 09:00 BP 108/74 07/08/23 10:00 Pulse Ox 92 07/08/23 09:00 O2 Del Method Room Air 07/08/23 06:00 07/07/23 07/08/23 07/08/23 22:59 06:59 14:59 Intake Total 1700 / 3200 1600 / 4800 620 / 620 Output Total 1200 / 1700 850 / 2550 Balance 500 / 1500 750 / 2250 620 / 620 Weight last 48 hrs Weight 72.575 kg Weight 68.492 kg Weight 68.492 kg Weight 68.5 kg Weight 68.039 kg Physical Exam Const: COMMON NORMALS: no acute distress, patient oriented x3 and alert HENMT: COMMON NORMALS: normocephalic, atraumatic, external ears normal, Normal external nose present, moist oral mucous membranes and oropharynx normal HEAD & SCALP: normocephalic and atraumatic NOSE: Normal external nose present EXTERNAL EAR: Yes external ears normal Eye: COMMON NORMALS: Equal, round and reactive pupils present, EOMs intact bilaterally, conjunctivae normal and no scleral icterus CONJUNCTIVA: Yes conjunctivae normal PUPIL: Yes Equal, round and reactive pupils present Neck/C-Spine: COMMON NORMALS: full ROM, no lymphadenopathy and no JVD Chest: COMMONS NORMALS: normal inspection of the chest Resp: COMMON NORMALS: normal respiratory effort and clear to auscultation bilaterally AUSCULTATION: clear to auscultation bilaterally OTHER: No wheezes or crcakles Cardio: COMMON NORMALS: no JVD, regular rate, regular rhythm, S1 normal heart sound present and S2 normal heart sound present RATE: regular rate RHYTHM: regular rhythm HEART SOUNDS: S1 normal heart sound present and S2 normal heart sound present GI: OTHER: Soft, mild generalized tenderness , no rebound or guarding, bowel sounds present Extremity: COMMON NORMALS: normal to inspection and no pedal edema Neuro: COMMON NORMALS: patient oriented x3 SENSORIUM/ORIENTATION: Yes alert OTHER: No gross focal deficits Urinary Catheter Management: Dahl: Cath Placed During This Visit: yes Reason for Continuing Indwelling Catheter: Accurate Measurement of Urinary Output in Critically Ill Patients Urinary Catheter Date of Insertion: 07/07/23 Urinary Catheter Time of Insertion: 05:21 Data 07/08/23 04:24 07/08/23 04:24 Micro: Microbiology 07/06/23 22:48 Blood Culture - Preliminary Blood NEGATIVE TO DATE 07/06/23 22:53 Blood Culture - Preliminary Blood NEGATIVE TO DATE A&P Assessment and plan (1) Severe sepsis: -Patient presented with signs of severe sepsis -Source is not very clear but thought to be GI. -CT chest, abd, pelvis - no evidence of acute infectious process. There was some mild heterogeneity within the gall bladder, thought to be due to prolonged fasting , no ductal dilation , LFTs, bili within normal limits. -Abdominal pain, diarrhea is improved. -Blood pressure improved -He is currently on broad-spectrum antibiotics with vancomycin and Zosyn. Kole deescalate to ceftriaxone -Blood cultures pending -Stool studies, C. difficile - pending -Continue supportive care, IVFs, close monitoring (2) Acute renal failure: # Elevated anion gap metabolic acidosis -likely prerenal etiology in the setting of GI loss. Rhabdomyolysis is also a possibility his CK is elevated although trending down. - Patient denied use of toxic alcohols. No evidence of obstruction on renal ultrasound -Creatinine continues to trend down today, metabolic acidosis improved . Bicarb dc -Nephrology consulted -Continue strict I's and O's, avoid nephrotoxic medications -Trend renal function tests Qualifiers: Acute renal failure type: unspecified Qualified Code(s): N17.9 - Acute kidney failure, unspecified (3) Abdominal pain: # Suspected small bowel obstruction -Abdominal x-ray showed suspected SBO -CT abdomen - ileus , no obstructive pattern -NGT removed, patient started on clear liquid diet -Advance diet as tolerated -Ct supportive care Qualifiers: Abdominal location: generalized Qualified Code(s): R10.84 - Generalized abdominal pain (4) Alcohol use disorder: - Continue CIWA protocol , multivitamin, thiamine, folic acid (5) Methamphetamine abuse: -Encourage cessation -Social work consult (6) Infestation by bed bug: Contact precautions Topical steroids and antihistamines as needed for symptomatic care -? Ticks also noted on patient -Empiric doxycycline initated (7) Tobacco use disorder: -Continue to encourage cessation (8) Hypertension: -Hold antihypertensives due to sepsis (9) Homelessness: Patient social situation including housing remains somewhat unclear Case management consultation Plan # Elevated D-dimer -Patient at this time does not have signs of PE -He also has severe ISAURA so cannot get a contrast -Continue to monitor DVT prophylaxis: Heparin Attestations Medical Necessity Statement*: Patient continues to require inpatient care for acute kidney injury, sepsis requiring IV fluids, IV antibiotics and close monitoring. Coding Level of Care Code Acute Code for [facility] Fwd Diagnoses Severe sepsis A41.9; R65.20 Acute renal failure N17.9 Acute renal failure type: unspecified Abdominal pain R10.84 Abdominal location: generalized Alcohol use disorder F10.90 Methamphetamine abuse F15.10 Infestation by bed bug B88.8 Tobacco use disorder F17.200 Hypertension I10 Homelessness Z59.00
[2023-07-08] MEDS: cefTRIAXone 1,000 MG in sodium chloride 0.9% (plus) 50 ML 100 MG IV (13:25)
[2023-07-08 14:29] LABS: Osmolality Serum 317 mOsm/kg (278-305)
--- NOTE | 2023-07-08 15:25 | P.PN_ITS ---
Subjective 2 Subjective: Patient seen and examined. He reports he is not having abdominal pain right now but that it is intermittent. No longer having diarrhea. He pulled out his NG tube yesterday afternoon Vitals/I&O/Wt Last Vital Signs Temp 98.1 F 07/08/23 04:00 Pulse 68 07/08/23 13:00 Resp 16 07/08/23 13:00 BP 108/74 07/08/23 10:00 Pulse Ox 92 07/08/23 09:00 O2 Del Method Room Air 07/08/23 06:00 07/08/23 07/08/23 07/08/23 06:59 14:59 22:59 Intake Total 1600 / 4800 1170 / 1170 Output Total 850 / 2550 Balance 750 / 2250 1170 / 1170 Weight last 48 hrs Weight 160 lb Weight 151 lb Weight 151 lb Weight 151 lb 0.266 oz Weight 150 lb Physical Exam 2 Narrative: General: No acute distress, awake alert and oriented x 3 but confabulating Abdomen: Soft, nontender, nondistended Urinary Catheter Management: Dahl: Cath Placed During This Visit: yes Reason for Continuing Indwelling Catheter: Accurate Measurement of Urinary Output in Critically Ill Patients Urinary Catheter Date of Insertion: 07/07/23 Urinary Catheter Time of Insertion: 05:21 Data 07/08/23 04:24 07/08/23 04:24 Micro: Microbiology 07/06/23 22:48 Blood Culture - Preliminary Blood NEGATIVE TO DATE 07/06/23 22:53 Blood Culture - Preliminary Blood NEGATIVE TO DATE A&P Assessment and plan (1) Abdominal pain: Qualifiers: Abdominal location: generalized Qualified Code(s): R10.84 - Generalized abdominal pain (2) Homelessness: (3) Diarrhea: (4) Infestation by bed bug: Plan His abdominal symptoms are vague and possibly fictitious. His abdominal exam was benign for me Stool studies CT abdomen pelvis essentially within normal limits Full liquid diet No acute surgical intervention Medical management per hospitalist Attestations 2 Medical Necessity Statement*: Per primary Coding Level of Care Code 52890 Diagnoses Abdominal pain R10.84 Abdominal location: generalized Homelessness Z59.00 Diarrhea R19.7 Infestation by bed bug B88.8
--- NOTE | 2023-07-08 16:22 | P.PN_ITS ---
Subjective 2 Subjective: doing well Medications: Reviewed: Yes Vitals/I&O/Wt Last Vital Signs Temp 98.1 F 07/08/23 04:00 Pulse 68 07/08/23 13:00 Resp 16 07/08/23 13:00 BP 108/74 07/08/23 10:00 Pulse Ox 92 07/08/23 09:00 O2 Del Method Room Air 07/08/23 06:00 07/08/23 07/08/23 07/08/23 06:59 14:59 22:59 Intake Total 1600 / 4800 1170 / 1170 Output Total 850 / 2550 Balance 750 / 2250 1170 / 1170 Weight last 48 hrs Weight 72.575 kg Weight 68.492 kg Weight 68.492 kg Weight 68.5 kg Weight 68.039 kg Physical Exam 2 Narrative: awake , alert HEENT S1S2 RRR per report Lungs clear per report no edema Urinary Catheter Management: Dahl: Cath Placed During This Visit: yes Reason for Continuing Indwelling Catheter: Accurate Measurement of Urinary Output in Critically Ill Patients Urinary Catheter Date of Insertion: 07/07/23 Urinary Catheter Time of Insertion: 05:21 Data 07/08/23 04:24 07/08/23 04:24 Micro: Microbiology 07/06/23 22:48 Blood Culture - Preliminary Blood NEGATIVE TO DATE 07/06/23 22:53 Blood Culture - Preliminary Blood NEGATIVE TO DATE A&P Assessment and plan (1) Acute renal failure: 1. Acute kidney injury: Baseline creatinine was normal about a year ago. Patient now presented with severe ISAURA associated with severe metabolic acidosis and uremia. Etiology likely prerenal in the setting of decreased p.o. intake, rhabdomyolysis. -, renal function improving, no indication for dialysis -Continue to monitor, avoid nephrotoxins and IV contrast studies, 2. Metabolic acidosis: With a high anion gap in the setting of rhabdo and ISAURA, s/p bicarb gtt 3. Rhabdomyolysis: Mild, trend CK levels 4. Hyperphosphatemia: Continue to monitor, should improve once renal function improves 5. History of hypertension, holding lisinopril 6. Question small bowel obstruction, he is n.p.o. with NG tube suction 7. Hypokalemia : replete Patient evaluated using audiovisual cart. Time spent 40 minutes. Qualifiers: Acute renal failure type: unspecified Qualified Code(s): N17.9 - Acute kidney failure, unspecified Attestations 2 Medical Necessity Statement*: per [facility] Coding Level of Care Code Acute Code for [facility] Fwd Diagnoses Acute renal failure N17.9 Acute renal failure type: unspecified
[2023-07-08] MEDS: LORazepam 2 mg/mL INJ 10 mL MDV IVP (16:52)
[2023-07-09] VITALS (10 sets, daily range): BP systolic 117–152; BP diastolic 73–99; PULSE 75–92; RESP 16–18; TEMP 36.4–37.1; O2SAT 94–98
[2023-07-09] MEDS: dextrose 5%-sod chloride 0.9% 1,000 ML 100 ML IV ×2 (03:58→14:05)
[2023-07-09 03:59] LABS: Basophils % 0.5 %; Eosinophils # 0.2 10^3/uL (0.0-0.8); Eosinophils % 2.7 %; Hematocrit 32.8 % (37-53); Lymphocytes # 1.4 10^3/uL (0.8-4.8); Lymphocytes % 21.8 %; Mean Corpuscular HGB Conc 34.1 g/dL (30-55); Mean Corpuscular Hemoglobin 32.4 pg (27-33); Mean Corpuscular Volume 94.8 fl (82-101); Mean Platelet Volume 9.6 fL (7.4-10.4); Monocytes # 1.5 10^3/uL (0.2-0.9); Monocytes % 22.9 %; Neutrophils # 3.25 10^3/uL (1.8-7.7); Neutrophils % 51.5 %; Nucleated Red Blood Cells % 0 %; Platelet Count 200 10^3/cmm (157-399); Red Blood Count 3.46 10^6/uL (3.85-5.65); Red Cell Distribution Width 12.8 % (12.1-15.1); White Blood Count 6.32 10^3/uL (3.29-11.43)
[2023-07-09 04:18] LABS: Alanine Aminotransferase 48 U/L (0-41); Alkaline Phosphatase 79 U/L (40-130); Anion Gap 11.8 (5-19); Aspartate Amino Transferase 40 U/L (0-40); Blood Urea Nitrogen 35 mg/dL (6-20); Carbon Dioxide 30 mmol/L (22-29); Chloride 99 mmol/L (98-107); Creatinine Clr Calc Pharmacy 62.8592; Glucose 101 mg/dL (65-115); Osmolality Calculated 292 mOsm/kg (285-295); Potassium 3.8 mmol/L (3.5-5.1); Sodium 137 mmol/L (136-145); Total Bilirubin 0.3 mg/dL (0.15-1.2)
[2023-07-09] MEDS: pantoprazole 40 mg SDV IVP (05:36)
[2023-07-09] MEDS: doxycycline 100 MG in sodium chloride 0.9% (plus) 100 ML IV ×2 (06:05→18:09)
[2023-07-09] MEDS: nicotine 21 mg Patch 1 PATCH TRANSDERMA (08:14)
[2023-07-09] MEDS: folic acid 1 mg Tablet PO (08:15)
[2023-07-09] MEDS: multivitamin therapeutic Tablet 1 TAB PO (08:15)
[2023-07-09] MEDS: thiamine 100 mg Tablet PO (08:15)
--- NOTE | 2023-07-09 10:08 | PM.PN ---
Subjective Subjective: No acute events overnight. He was seen at his bedside and reports much improvement in his symptoms . Abd pain improved, he wants to advance his diet. Diarrhea is improved. He has no other complaints Medications: Reviewed: Yes Vitals/I&O/Wt Last Vital Signs Temp 98.1 F 07/09/23 07:41 Pulse 92 07/09/23 07:41 Resp 17 07/09/23 07:41 BP 120/87 07/09/23 07:41 Pulse Ox 95 07/09/23 07:41 O2 Del Method Room Air 07/09/23 07:41 07/08/23 07/09/23 07/09/23 22:59 06:59 14:59 Intake Total 1600 / 2770 100 / 100 Output Total 1350 / 1350 Balance 250 / 1420 100 / 100 Weight last 48 hrs Weight 71.384 kg Weight 72.575 kg Physical Exam Const: COMMON NORMALS: no acute distress, patient oriented x3 and alert HENMT: COMMON NORMALS: normocephalic, atraumatic, external ears normal, Normal external nose present, moist oral mucous membranes and oropharynx normal HEAD & SCALP: normocephalic and atraumatic NOSE: Normal external nose present EXTERNAL EAR: Yes external ears normal Eye: COMMON NORMALS: Equal, round and reactive pupils present, EOMs intact bilaterally, conjunctivae normal and no scleral icterus CONJUNCTIVA: Yes conjunctivae normal PUPIL: Yes Equal, round and reactive pupils present Neck/C-Spine: COMMON NORMALS: full ROM, no lymphadenopathy and no JVD Chest: COMMONS NORMALS: normal inspection of the chest Resp: COMMON NORMALS: normal respiratory effort and clear to auscultation bilaterally AUSCULTATION: clear to auscultation bilaterally OTHER: No wheezes or crcakles Cardio: COMMON NORMALS: no JVD, regular rate, regular rhythm, S1 normal heart sound present and S2 normal heart sound present RATE: regular rate RHYTHM: regular rhythm HEART SOUNDS: S1 normal heart sound present and S2 normal heart sound present GI: OTHER: Soft, mild generalized tenderness , no rebound or guarding, bowel sounds present Extremity: COMMON NORMALS: normal to inspection and no pedal edema Neuro: COMMON NORMALS: patient oriented x3 SENSORIUM/ORIENTATION: Yes alert OTHER: No gross focal deficits Urinary Catheter Management: Dahl: Cath Placed During This Visit: yes, but has since been removed by the nurse Reason for Continuing Indwelling Catheter: Not indwelling catheter Urinary Catheter Date of Insertion: 07/07/23 Urinary Catheter Time of Insertion: 05:21 Date Urinary Catheter Removed: 07/08/23 Time Urinary Catheter Discontinued: 14:30 Data 07/09/23 03:27 07/09/23 03:27 A&P Assessment and plan (1) Severe sepsis: -Patient presented with signs of severe sepsis -Source is not very clear but thought to be GI. -CT chest, abd, pelvis - no evidence of acute infectious process. There was some mild heterogeneity within the gall bladder, thought to be due to prolonged fasting , no ductal dilation , LFTs, bili within normal limits. -Abdominal pain, diarrhea is improved. -Blood pressure improved -Patient now on ceftriaxone -Blood cultures negative so far -Stool studies, C. difficile - pending -Continue supportive care, close monitoring (2) Acute renal failure: # Elevated anion gap metabolic acidosis -Prerenal etiology in the setting of GI loss. Rhabdomyolysis is also a possibility his CK was elevated , trended down - Patient denied use of toxic alcohols. No evidence of obstruction on renal ultrasound -Creatinine continues to trend down today, metabolic acidosis improved . Bicarb dc -Continue strict I's and O's, avoid nephrotoxic medications -Trend renal function tests Qualifiers: Acute renal failure type: unspecified Qualified Code(s): N17.9 - Acute kidney failure, unspecified (3) Abdominal pain: # Suspected small bowel obstruction -Abdominal x-ray showed suspected SBO -CT abdomen - ileus , no obstructive pattern -NGT removed, patient started on clear liquid diet , tolerated, will advance diet -Ct supportive care Qualifiers: Abdominal location: generalized Qualified Code(s): R10.84 - Generalized abdominal pain (4) Alcohol use disorder: - Continue CIWA protocol , multivitamin, thiamine, folic acid (5) Methamphetamine abuse: -Encourage cessation -Social work consult (6) Infestation by bed bug: Contact precautions Topical steroids and antihistamines as needed for symptomatic care -? Ticks also noted on patient. Tick borne illness panel ordered -Empiric doxycycline initiated (7) Tobacco use disorder: -Continue to encourage cessation (8) Hypertension: -Hold antihypertensives due to sepsis -Resume antihypertensives as appropriate (9) Homelessness: Patient social situation including housing remains somewhat unclear Case management consultation Plan # Elevated D-dimer -Patient at this time does not have signs of PE -He also has severe ISAURA so cannot get a contrast -Continue to monitor DVT prophylaxis: Heparin Attestations Medical Necessity Statement*: Patient continues to require inpatient care for acute kidney injury, sepsis requiring IV fluids, IV antibiotics and close monitoring. Coding Level of Care Code Acute Code for [facility] Fwd Diagnoses Severe sepsis A41.9; R65.20 Acute renal failure N17.9 Acute renal failure type: unspecified Abdominal pain R10.84 Abdominal location: generalized Alcohol use disorder F10.90 Methamphetamine abuse F15.10 Infestation by bed bug B88.8 Tobacco use disorder F17.200 Hypertension I10 Homelessness Z59.00
[2023-07-09] MEDS: cefTRIAXone 1,000 MG in sodium chloride 0.9% (plus) 50 ML 100 MG IV (12:23)
--- NOTE | 2023-07-09 16:20 | P.PN_ITS ---
Subjective 2 Subjective: Patient seen and examined. Denies any abdominal pain. He reports that he still passing flatus and having diarrhea Vitals/I&O/Wt Last Vital Signs Temp 98.1 F 07/09/23 11:43 Pulse 88 07/09/23 14:00 Resp 16 07/09/23 11:43 BP 123/73 07/09/23 11:43 Pulse Ox 96 07/09/23 11:43 O2 Del Method Room Air 07/09/23 11:43 07/09/23 07/09/23 07/09/23 06:59 14:59 22:59 Intake Total 1150 / 1150 Balance 1150 / 1150 Weight last 48 hrs Weight 157 lb 6 oz Weight 160 lb Physical Exam 2 Narrative: General: No acute distress, awake alert and oriented x 3 Abdomen: Soft, nontender, nondistended, no guarding rebound or masses Urinary Catheter Management: Dahl: Cath Placed During This Visit: yes, but has since been removed by the nurse Reason for Continuing Indwelling Catheter: Not indwelling catheter Urinary Catheter Date of Insertion: 07/07/23 Urinary Catheter Time of Insertion: 05:21 Date Urinary Catheter Removed: 07/08/23 Time Urinary Catheter Discontinued: 14:30 Data 07/09/23 03:27 07/09/23 03:27 A&P Assessment and plan (1) Abdominal pain: Qualifiers: Abdominal location: generalized Qualified Code(s): R10.84 - Generalized abdominal pain (2) Homelessness: (3) Diarrhea: (4) Infestation by bed bug: Plan His abdominal symptoms were vague and possibly fictitious. His abdominal exam was benign for me Stool studies CT abdomen pelvis essentially within normal limits Regular diet Surgically stable for discharge Medical management per hospitalist Attestations 2 Medical Necessity Statement*: Per primary Coding Level of Care Code 35305 Diagnoses Abdominal pain R10.84 Abdominal location: generalized Homelessness Z59.00 Diarrhea R19.7 Infestation by bed bug B88.8
--- NOTE | 2023-07-09 16:33 | P.PN_ITS ---
Subjective 2 Subjective: no new c/o Medications: Reviewed: Yes Vitals/I&O/Wt Last Vital Signs Temp 98.4 F 07/09/23 15:24 Pulse 81 07/09/23 15:24 Resp 16 07/09/23 15:24 BP 151/89 07/09/23 15:24 Pulse Ox 98 07/09/23 15:24 O2 Del Method Room Air 07/09/23 15:24 07/09/23 07/09/23 07/09/23 06:59 14:59 22:59 Intake Total 1150 / 1150 Balance 1150 / 1150 Weight last 48 hrs Weight 71.384 kg Weight 72.575 kg Physical Exam 2 Narrative: awake , alert HEENT S1S2 RRR per report Lungs clear per report no edema Urinary Catheter Management: Dahl: Cath Placed During This Visit: yes, but has since been removed by the nurse Reason for Continuing Indwelling Catheter: Not indwelling catheter Urinary Catheter Date of Insertion: 07/07/23 Urinary Catheter Time of Insertion: 05:21 Date Urinary Catheter Removed: 07/08/23 Time Urinary Catheter Discontinued: 14:30 Data 07/09/23 03:27 07/09/23 03:27 A&P Assessment and plan (1) Acute renal failure: 1. Acute kidney injury: Baseline creatinine was normal about a year ago. Patient now presented with severe ISAURA associated with severe metabolic acidosis and uremia. Etiology likely prerenal in the setting of decreased p.o. intake, rhabdomyolysis. -, renal function improving, -Continue to monitor, avoid nephrotoxins and IV contrast studies, 2. Metabolic acidosis: With a high anion gap in the setting of rhabdo and ISAURA, s/p bicarb gtt 3. Rhabdomyolysis: Mild, trending CK levels 4. Hyperphosphatemia: Continue to monitor, 5. History of hypertension, holding lisinopril 6. small bowel obstruction,gen surgery following 7. Hypokalemia : replete Patient evaluated using audiovisual cart. Time spent 20 minutes. Qualifiers: Acute renal failure type: unspecified Qualified Code(s): N17.9 - Acute kidney failure, unspecified Attestations 2 Medical Necessity Statement*: per clifton Coding Level of Care Code Acute Code for [facility] Fwd Diagnoses Acute renal failure N17.9 Acute renal failure type: unspecified
[2023-07-10] VITALS (8 sets, daily range): BP systolic 149–173; BP diastolic 84–108; PULSE 64–87; RESP 16–19; TEMP 36.6–37.2; O2SAT 96–98
[2023-07-10] MEDS: dextrose 5%-sod chloride 0.9% 1,000 ML 100 ML IV (00:41)
[2023-07-10 03:09] LABS: Basophils % 0.6 %; Eosinophils # 0.4 10^3/uL (0.0-0.8); Eosinophils % 5.3 %; Hematocrit 32.5 % (37-53); Lymphocytes # 1.4 10^3/uL (0.8-4.8); Lymphocytes % 20.6 %; Mean Corpuscular HGB Conc 32.9 g/dL (30-55); Mean Corpuscular Hemoglobin 32.3 pg (27-33); Mean Corpuscular Volume 98.2 fl (82-101); Mean Platelet Volume 9.1 fL (7.4-10.4); Monocytes # 1.4 10^3/uL (0.2-0.9); Monocytes % 21.1 %; Neutrophils # 3.43 10^3/uL (1.8-7.7); Neutrophils % 50.6 %; Nucleated Red Blood Cells % 0 %; Platelet Count 238 10^3/cmm (157-399); Red Blood Count 3.31 10^6/uL (3.85-5.65); Red Cell Distribution Width 13.1 % (12.1-15.1); White Blood Count 6.78 10^3/uL (3.29-11.43)
[2023-07-10 03:29] LABS: Anion Gap 10.2 (5-19); Blood Urea Nitrogen 18 mg/dL (6-20); Calcium 7.8 mg/dL (8.5-10.5); Carbon Dioxide 27 mmol/L (22-29); Chloride 108 mmol/L (98-107); Creatinine Clr Calc Pharmacy 87.4273; Glomerular Filtration Rate 78.2 mL/min (90-130); Glucose 139 mg/dL (65-115); Phosphorus 1.9 mg/dL (2.5-4.5); Potassium 4.2 mmol/L (3.5-5.1); Sodium 141 mmol/L (136-145)
[2023-07-10] MEDS: pantoprazole 40 mg SDV IVP (05:57)
[2023-07-10] MEDS: doxycycline 100 MG in sodium chloride 0.9% (plus) 100 ML IV ×2 (06:00→18:01)
[2023-07-10] MEDS: thiamine 100 mg Tablet PO (08:25)
[2023-07-10] MEDS: folic acid 1 mg Tablet PO (08:25)
[2023-07-10] MEDS: phosphorus 250 mg Tablet PO (08:25)
[2023-07-10] MEDS: multivitamin therapeutic Tablet 1 TAB PO (08:25)
[2023-07-10] MEDS: nicotine 21 mg Patch 1 PATCH TRANSDERMA (08:25)
--- NOTE | 2023-07-10 11:27 | USR_ITS ---
PROCEDURE INFORMATION: Exam: US Duplex Lower Extremity Veins, Bilateral Exam date and time: 07/10/2023 4:43 PM Age: 52 years old Clinical indication: Abnormal findings; Abnormal lab test; Elevated d-dimer; Additional info: Elevated d. Dimer TECHNIQUE: Imaging protocol: Real-time duplex ultrasound of the bilateral extremities with 2-D dominguez scale, color Doppler flow and spectral waveform analysis including responses to compression and other maneuvers (when performed) with image documentation. Complete exam focused on the lower extremity veins. COMPARISON: US renal BI* [id number] 07/06/2023 10:21 PM FINDINGS: Right deep veins: Unremarkable. The common femoral, femoral, proximal profunda femoral, popliteal, posterior tibial and peroneal veins are patent without thrombus. Normal Doppler waveforms. Normal compressibility and/or augmentation response. Left deep veins: Unremarkable. The common femoral, femoral, proximal profunda femoral, popliteal, posterior tibial and peroneal veins are patent without thrombus. Normal Doppler waveforms. Normal compressibility and/or augmentation response. Superficial veins: Greater saphenous veins at the saphenofemoral junctions are patent bilaterally without thrombus. Soft tissues: Unremarkable. US/[place] [id number] IMPRESSION: No sonographic evidence of deep venous thrombosis.
--- NOTE | 2023-07-10 11:27 | CTR_ITS ---
PROCEDURE INFORMATION: Exam: CTA Chest With Contrast Exam date and time: 07/10/2023 12:55 PM Age: 52 years old Clinical indication: Dyspnea; Additional info: Elevated d. Dimer TECHNIQUE: Imaging protocol: Computed tomographic angiography of the chest with contrast. Exam focused on the arteries. 3D rendering (Not supervised by radiologist): MIP and/or 3D reconstructed images were created by the technologist. Radiation optimization: All CT scans at this facility use at least one of these dose optimization techniques: automated exposure control; mA and/or kV adjustment per patient size (includes targeted exams where dose is matched to clinical indication); or iterative reconstruction. Contrast material: OMNI 350; Contrast volume: 71 ml; Contrast route: INTRAVENOUS (IV); COMPARISON: [place] [id number] 07/07/2023 3:26 PM RADIATION DOSE METRICS: Total DLP (mGy-cm): 347.79 FINDINGS: Pulmonary arteries: No main, lobar, or segmental PE identified. Aorta: Unremarkable. No aortic aneurysm. No aortic dissection. Lungs: Bibasilar atelectasis or airspace disease. No dominant lung mass or spiculated nodule. No focal pneumonia. Pleural spaces: Trace bilateral pleural effusions. No pneumothorax. Heart: The heart is not enlarged. No pericardial effusion is noted. Lymph nodes: Mild slight reactive bilateral hilar and mediastinal lymphadenopathy. Liver: Hepatic steatosis. See the abdomen/pelvis CT from 07/07/2023 for other details. Bones/joints: Skeletal structures are age appropriate. No acute fracture is seen. Soft tissues: Unremarkable. CT/CT angio chest PE protcl [id number] IMPRESSION: 1. No focal PE or consolidation. 2. Trace bilateral pleural effusions with areas of bibasilar atelectasis or vague airspace disease/pneumonitis. These findings are mildly progressed from 3 days ago.
[2023-07-10] MEDS: cefTRIAXone 1,000 MG in sodium chloride 0.9% (plus) 50 ML 100 MG IV (12:00)
[2023-07-10] MEDS: iohexol 350 mg/mL 500 mL Btl (per mL) IV (12:59)
[2023-07-10] MEDS: lisinopril 20 mg Tablet PO ×2 (14:09→18:03)
[2023-07-10] MEDS: hyDRALAzine 20 mg/mL INJ 1 mL 10 MG IVP (16:40)
--- NOTE | 2023-07-10 18:45 | P.PN_ITS ---
Subjective 2 Subjective: No acute events overnight. He was seen at his bedside and reports much improvement in his symptoms . Abd pain improved. Diarrhea is improved. He has no other complaints Medications: Reviewed: Yes Vitals/I&O/Wt Last Vital Signs Temp 99.0 F 07/10/23 15:00 Pulse 77 07/10/23 15:00 Resp 18 07/10/23 15:00 BP 155/91 07/10/23 18:41 Pulse Ox 97 07/10/23 15:00 O2 Del Method Room Air 07/10/23 15:00 07/10/23 07/10/23 07/10/23 06:59 14:59 22:59 Intake Total 1480 / 3210 2109 Output Total 650 / 650 Balance 830 / 2560 2109 Weight last 48 hrs Weight 73.482 kg Weight 71.384 kg Physical Exam 2 Const: COMMON NORMALS: no acute distress, patient oriented x3 and alert HENMT: COMMON NORMALS: normocephalic, atraumatic, external ears normal, Normal external nose present, moist oral mucous membranes and oropharynx normal HEAD & SCALP: normocephalic and atraumatic NOSE: Normal external nose present E XTERNAL EAR: Yes external ears normal Eye: COMMON NORMALS: Equal, round and reactive pupils present, EOMs intact bilaterally, conjunctivae normal and no scleral icterus CONJUNCTIVA: Yes conjunctivae normal PUPIL: Yes Equal, round and reactive pupils present Neck/C-Spine: COMMON NORMALS: full ROM, no lymphadenopathy and no JVD Chest: COMMONS NORMALS: normal inspection of the chest Resp: COMMON NORMALS: normal respiratory effort and clear to auscultation bilaterally AUSCULTATION: clear to auscultation bilaterally OTHER: No wheezes or crcakles Cardio: COMMON NORMALS: no JVD, regular rate, regular rhythm, S1 normal heart sound present and S2 normal heart sound present RATE: regular rate RHYTHM: regular rhythm HEART SOUNDS: S1 normal heart sound present and S2 normal heart sound present GI: OTHER: Soft, non tender , no rebound or guarding, bowel sounds present Extremity: COMMON NORMALS: normal to inspection and no pedal edema Neuro: COMMON NORMALS: patient oriented x3 SENSORIUM/ORIENTATION: Yes alert OTHER: No gross focal deficits Urinary Catheter Management: Dahl: Cath Placed During This Visit: yes, but has since been removed by the nurse Reason for Continuing Indwelling Catheter: Not indwelling catheter Urinary Catheter Date of Insertion: 07/07/23 Urinary Catheter Time of Insertion: 05:21 Date Urinary Catheter Removed: 07/08/23 Time Urinary Catheter Discontinued: 14:30 Data 07/10/23 02:44 07/10/23 02:44 A&P Assessment and plan (1) Severe sepsis: -Patient presented with signs of severe sepsis -Source is not very clear but thought to be GI. -CT chest, abd, pelvis - no evidence of acute infectious process. There was some mild heterogeneity within the gall bladder, thought to be due to prolonged fasting , no ductal dilation , LFTs, bili within normal limits. -Abdominal pain, diarrhea is improved. -Blood pressure improved -Patient now on empiric ceftriaxone -Blood cultures negative so far -Stool studies, C. difficile - pending -Continue supportive care, close monitoring (2) Acute renal failure: # Elevated anion gap metabolic acidosis -Prerenal etiology in the setting of GI loss. Rhabdomyolysis is also a possibility his CK was elevated , trended down - Patient denied use of toxic alcohols. No evidence of obstruction on renal ultrasound -Creatinine continues to trend down today, metabolic acidosis resolved . Bicarb dc -Continue strict I's and O's, avoid nephrotoxic medications Qualifiers: Acute renal failure type: unspecified Qualified Code(s): N17.9 - Acute kidney failure, unspecified (3) Abdominal pain: # Suspected small bowel obstruction -Abdominal x-ray showed suspected SBO -CT abdomen - ileus , no obstructive pattern -NGT removed, patient now tolerating po intake -Ct supportive care Qualifiers: Abdominal location: generalized Qualified Code(s): R10.84 - Generalized abdominal pain (4) Alcohol use disorder: - Continue CIWA protocol , multivitamin, thiamine, folic acid (5) Methamphetamine abuse: -Encourage cessation -Social work consult (6) Infestation by bed bug: Contact precautions Topical steroids and antihistamines as needed for symptomatic care -? Ticks also noted on patient. Tick borne illness panel ordered -Empiric doxycycline initiated (7) Tobacco use disorder: -Continue to encourage cessation (8) Hypertension: -Patient's Bp elevated -He required IV hydralazine due to severe hypertension -Resume lisinopril (9) Homelessness: After review, patient has a home Plan # Elevated D-dimer -CT chest , doppler us - negative for VTE DVT prophylaxis: enoxaprin Attestations 2 Medical Necessity Statement*: Patient continues to require inpatient care , his BP elevated today , plan for discharge in 24hrs Coding Level of Care Code Acute Code for [facility] Fwd Diagnoses Severe sepsis A41.9; R65.20 Acute renal failure N17.9 Acute renal failure type: unspecified Abdominal pain R10.84 Abdominal location: generalized Alcohol use disorder F10.90 Methamphetamine abuse F15.10 Infestation by bed bug B88.8 Tobacco use disorder F17.200 Hypertension I10 Homelessness Z59.00
--- NOTE | 2023-07-10 19:42 | P.PN_ITS ---
Subjective 2 Subjective: doing well Medications: Reviewed: Yes Vitals/I&O/Wt Last Vital Signs Temp 98.2 F 07/11/23 14:47 Pulse 92 07/11/23 14:47 Resp 17 07/11/23 14:47 BP 142/90 07/11/23 14:47 Pulse Ox 98 07/11/23 14:47 O2 Del Method Room Air 07/11/23 11:47 Weight last 48 hrs Weight 71.242 kg Physical Exam 2 Narrative: awake , alert HEENT S1S2 RRR per report Lungs clear per report no edema Urinary Catheter Management: Dahl: Cath Placed During This Visit: yes, but has since been removed by the nurse Reason for Continuing Indwelling Catheter: Not indwelling catheter Urinary Catheter Date of Insertion: 07/07/23 Urinary Catheter Time of Insertion: 05:21 Date Urinary Catheter Removed: 07/08/23 Time Urinary Catheter Discontinued: 14:30 Data 07/10/23 02:44 07/11/23 02:57 Micro: Microbiology 07/06/23 22:53 Blood Culture - Final Blood NO GROWTH AFTER 5 DAYS 07/06/23 22:48 Blood Culture - Final Blood NO GROWTH AFTER 5 DAYS A&P Assessment and plan (1) Acute renal failure: 1. Acute kidney injury: Baseline creatinine was normal about a year ago. Patient now presented with severe ISAURA associated with severe metabolic acidosis and uremia. Etiology likely prerenal in the setting of decreased p.o. intake, rhabdomyolysis. -, renal function improving, -Continue to monitor, avoid nephrotoxins and IV contrast studies, 2. Metabolic acidosis: With a high anion gap in the setting of rhabdo and ISAURA, s/p bicarb gtt 3. Rhabdomyolysis: Mild, trending CK levels 4. Hyperphosphatemia: Continue to monitor, 5. History of hypertension, holding lisinopril 6. small bowel obstruction,gen surgery following 7. Hypokalemia : replete Patient evaluated using audiovisual cart. Time spent 20 minutes. Qualifiers: Acute renal failure type: unspecified Qualified Code(s): N17.9 - Acute kidney failure, unspecified Attestations 2 Medical Necessity Statement*: per biancasd Coding Level of Care Code Acute Code for [facility] Fwd Diagnoses Acute renal failure N17.9 Acute renal failure type: unspecified
[2023-07-10] MEDS: enoxaparin 30 mg/0.3 mL Syringe SUBCUT (19:59)
--- NOTE | 2023-07-10 20:45 | P.PN_ITS ---
Subjective 2 Subjective: Patient seen and examined. He denies any further abdominal pain. He said a bowel movement this morning but is no longer having any diarrhea. Vitals/I&O/Wt Last Vital Signs Temp 98.2 F 07/10/23 19:59 Pulse 87 07/10/23 19:59 Resp 19 H 07/10/23 19:59 BP 170/84 07/10/23 19:59 Pulse Ox 96 07/10/23 19:59 O2 Del Method Room Air 07/10/23 19:59 07/10/23 07/10/23 07/10/23 06:59 14:59 22:59 Intake Total 1480 / 3210 2109 Output Total 650 / 650 Balance 830 / 2560 2109 Weight last 48 hrs Weight 162 lb Weight 157 lb 6 oz Physical Exam 2 Narrative: General: No acute distress, awake alert and oriented x 3 Abdomen: Soft, nontender, nondistended, no guarding rebound or masses Urinary Catheter Management: Dahl: Cath Placed During This Visit: yes, but has since been removed by the nurse Reason for Continuing Indwelling Catheter: Not indwelling catheter Urinary Catheter Date of Insertion: 07/07/23 Urinary Catheter Time of Insertion: 05:21 Date Urinary Catheter Removed: 07/08/23 Time Urinary Catheter Discontinued: 14:30 Data 07/10/23 02:44 07/10/23 02:44 A&P Assessment and plan (1) Abdominal pain: Qualifiers: Abdominal location: generalized Qualified Code(s): R10.84 - Generalized abdominal pain (2) Homelessness: (3) Diarrhea: (4) Infestation by bed bug: Plan His abdominal symptoms were vague and possibly fictitious. His abdominal exam was benign for me Stool studies still pending CT abdomen pelvis essentially within normal limits Regular diet Surgically stable for discharge Medical management per hospitalist Attestations 2 Medical Necessity Statement*: Per primary Coding Level of Care Code 48018 Diagnoses Abdominal pain R10.84 Abdominal location: generalized Homelessness Z59.00 Diarrhea R19.7 Infestation by bed bug B88.8
[2023-07-10] MEDS: temazepam 15 mg Capsule PO (23:10)
[2023-07-11] VITALS: BP 156/88; PULSE 82; RESP 18; TEMP 37.2; O2SAT 96
[2023-07-11 03:52] VITALS: BP 137/87; PULSE 93; RESP 18; TEMP 36.8; O2SAT 95
[2023-07-11 04:10] LABS: Albumin Level 3.1 g/dL (3.5-5.2); Anion Gap 11.9 (5-19); Blood Urea Nitrogen 17 mg/dL (6-20); Calcium 8.4 mg/dL (8.5-10.5); Carbon Dioxide 25 mmol/L (22-29); Chloride 107 mmol/L (98-107); Creatinine Clr Calc Pharmacy 110.5516; Glomerular Filtration Rate 101.1 mL/min (90-130); Glucose 104 mg/dL (65-115); Phosphorus 2.3 mg/dL (2.5-4.5); Potassium 3.9 mmol/L (3.5-5.1); Sodium 140 mmol/L (136-145)
[2023-07-11 07:41] VITALS: BP 145/92; PULSE 96; RESP 16; O2SAT 97
[2023-07-11] MEDS: lisinopril 20 mg Tablet PO (09:02)
[2023-07-11] MEDS: doxycycline 100 mg Tablet PO (09:02)
[2023-07-11] MEDS: nicotine 21 mg Patch 1 PATCH TRANSDERMA (09:02)
[2023-07-11] MEDS: thiamine 100 mg Tablet PO (09:02)
[2023-07-11] MEDS: multivitamin therapeutic Tablet 1 TAB PO (09:02)
[2023-07-11] MEDS: folic acid 1 mg Tablet PO (09:02)
--- NOTE | 2023-07-11 10:39 | P.DS_ITS ---
Discharge Providers Date of Admission: 07/07/23 00:22 Date of Discharge: July 11, 2023 Attending Provider at Admission: Russel Milligan MD Attending Provider at Discharge: Neymar Sargent MD Primary Care Provider: Cb Tilley MD Diagnoses at Discharge Discharge Diagnosis (1) Abdominal pain: Status: Resolved Qualifiers: Abdominal location: generalized Qualified Code(s): R10.84 - Generalized abdominal pain (2) Homelessness: Status: Inactive (3) Diarrhea: Status: Resolved (4) Infestation by bed bug: Status: Inactive Reason for Visit Reason for Visit: Abd Pain Brief History: Rei Aponte is a 52 year old male with a past medical history of tobacco use disorder, alcohol use disorder, methamphetamine use disorder, and hypertension who presents emergency department with abdominal pain x 7 days. Patient is awake and alert but quite tangential at times making his history seems unreliable. He reported a previous history of gastric ulcer, and reports having abdominal pain that radiates down to his kidneys. Said that his pain had worsened over the last 1 week. He also reports that he had been having some diarrhea. He notes that he took some methamphetamines orally before calling EMS today. He called EMS because the pain got so severe. Hospital Course Hospital Course He was admitted and general surgery was consulted. Nephrology was also consulted, as he was found to be in acute kidney failure. He was also noted to have multiple electrolyte abnormalities. Drug screen was positive for methamphetamine. He was started on IV fluids, electrolytes were slowly corrected, and he had an NG tube placed for a suspected small bowel obstruction. He was placed on broad-spectrum antibiotics and cultures were obtained. Over the course of his stay he did remove his own NG tube. Stool studies were obtained and are pending.He was able to tolerate a diet, and his renal function returned to his baseline. He was discharged in stable and improved condition. Patient was counseled to avoid further methamphetamine use. Physical Exam Narrative: General: Cooperative patient in no apparent distress. Well developed. HEENT: Normocephalic, Atraumatic. External ears normal. Nasal passages patent without drainage. MMM. Heart: RRR. Resp: LCTA. No respiratory distress, no use of accessory muscles. Abd: Soft, non-tender. Non-distended. Extremities: No edema. Skin: No rash or lesions on exposed areas. Neuro: No focal motor or sensory loss. Gait is normal. 6 Urinary Catheter Management: Dahl: Cath Placed During This Visit: yes, but has since been removed by the nurse Reason for Continuing Indwelling Catheter: Not indwelling catheter Urinary Catheter Date of Insertion: 07/07/23 Urinary Catheter Time of Insertion: 05:21 Date Urinary Catheter Removed: 07/08/23 Time Urinary Catheter Discontinued: 14:30 Discharge Data Studies Completed and Pending Completed Studies During Hospitalization Category Date Time Status CT chest abdomen pelvis [[place] [id number] Cat Scan 07/07/23 11:25 Completed ] Routine CTA PE [CT angio chest PE protcl 30421] Routine Cat Scan 07/10/23 11:27 Compl eted XR abdomen 1V* [id number] Stat Exams 07/06/23 20:31 Completed XR abdomen 1V* [id number] Stat Exams 07/06/23 22:46 [place] [id number] Routine Ultrasound 07/10/23 11:27 Completed US renal BI* [id number] Stat Ultrasound 07/06/23 21:28 Completed Pending at discharge Category Date Time Status Blood Culture Stat Lab 07/06/23 22:53 Results MRSA [Methicillin Resistant S.aureu] Routine Lab 07/07/23 19:15 Received Osmolality Serum Stat Lab 07/06/23 22:43 Received Stool Culture - Enteric [Salmonella / Shigella / Campy] Lab 07/07/23 19:15 Received Routine Tick Panel Routine Lab 07/08/23 12:35 Received Radiology Impressions Renal Ultrasound 07/06/23 21:28 IMPRESSION: 1. No hydronephrosis of either kidney. 2. Diffuse bladder wall thickening, possibly sequela of chronic obstruction or cystitis. Patient was unable to void despite multiple attempts. Consider urologic evaluation. Abdomen X-Ray 07/06/23 22:46 IMPRESSION: NG tube ends in the stomach Chest CTA 07/10/23 11:27 IMPRESSION: 1. No focal PE or consolidation. 2. Trace bilateral pleural effusions with areas of bibasilar atelectasis or vague airspace disease/pneumonitis. These findings are mildly progressed from 3 days ago. Venous Duplex 07/10/23 11:27 IMPRESSION: No sonographic evidence of deep venous thrombosis. Laboratory Results WBC 6.78 10^3/uL (3.29-11.43) 07/10/23 02:44 RBC 3.31 10^6/uL (3.85-5.65) L 07/10/23 02:44 Hgb 10.70 g/dL (11.27-16.99) L 07/10/23 02:44 Hct 32.5 % (37-53) L 07/10/23 02:44 MCV 98.2 fl (82-101) 07/10/23 02:44 MCH 32.3 pg (27-33) 07/10/23 02:44 MCHC 32.9 g/dL (30-55) 07/10/23 02:44 RDW 13.1 % (12.1-15.1) 07/10/23 02:44 Plt Count 238 10^3/cmm (157-399) 07/10/23 02:44 MPV 9.1 fL (7.4-10.4) 07/10/23 02:44 Neut % (Auto) 50.6 % 07/10/23 02:44 Lymph % (Auto) 20.6 % 07/10/23 02:44 [place] % (Auto) 21.1 % 07/10/23 02:44 Eos % (Auto) 5.3 % 07/10/23 02:44 Baso % (Auto) 0.6 % 07/10/23 02:44 Neut # (Auto) 3.43 10^3/uL (1.8-7.7) 07/10/23 02:44 Lymph # (Auto) 1.4 10^3/uL (0.8-4.8) 07/10/23 02:44 [place] # (Auto) 1.4 10^3/uL (0.2-0.9) H 07/10/23 02:44 Eos # (Auto) 0.4 10^3/uL (0.0-0.8) 07/10/23 02:44 Baso # (Auto) 0.0 10^3/uL (0.0-0.1) 07/10/23 02:44 Nucleated RBC % (auto) 0 % 07/10/23 02:44 Total Counted 100 (0-100) 07/08/23 04:24 Atypical Lymphs % Not Reportable 07/08/23 04:24 Absolute Neutrophils 3.6 10^3/cmm (1.4-6.5) 07/08/23 04:24 Segmented Neutrophils 46 % 07/08/23 04:24 Abs Segm Neuts (Man) 2.9 10/cmm (1.6-7.1) 07/08/23 04:24 Band Neutrophils 12.0 % 07/08/23 04:24 Abs Band Neuts (Man) 0.8 10^3/cmm (0.0-1.2) 07/08/23 04:24 Lymphocytes (Manual) 18 % 07/08/23 04:24 Monocytes (Manual) 19.0 % 07/08/23 04:24 Absolute Monocytes 1.2 10^3/cmm (0.1-0.6) H 07/08/23 04:24 Eosinophils (Manual) 5 % 07/08/23 04: Absolute Eosinophils 0.3 10^3/cmm (0.0-0.7) 07/08/23 04:24 Basophils (Manual) 0.0 % 07/08/23 04: Absolute Basophils 0.0 10^3/cmm (0.0-0.2) 07/08/23 04:24 Nucleated RBCs # 0.0 /100WBC 07/10/23 02:44 Platelet Estimate Normal (Normal) 07/08/23 04:24 D-Dimer 2.49 ug/mLFEU (0-0.59) H 07/06/23 22:48 Sodium 140 mmol/L (136-145) 07/11/23 02:57 Potassium 3.9 mmol/L (3.5-5.1) 07/11/23 02:57 Chloride 107 mmol/L (98-107) 07/11/23 02:57 Carbon Dioxide 25 mmol/L (22-29) 07/11/23 02:57 Anion Gap 11.9 (5-19) 07/11/23 02:57 BUN 17 mg/dL (6-20) 07/11/23 02:57 Creatinine 0.8 mg/dL (0.7-1.2) 07/11/23 02:57 GFR Calculation 101.1 mL/min (90-130) 07/11/23 02:57 Glucose 104 mg/dL (65-115) 07/11/23 02:57 Serum Osmolality 317 mOsm/kg (278-305) H 07/07/23 03:40 Calculated Osmolality 292 mOsm/kg (285-295) 07/09/23 03:27 Lactic Acid Cancelled 07/06/23 22:48 Calcium 8.4 mg/dL (8.5-10.5) L 07/11/23 02:57 Phosphorus 2.3 mg/dL (2.5-4.5) L 07/11/23 02:57 Magnesium 2.5 mg/dL (1.7-2.3) H 07/07/23 03:40 Total Bilirubin 0.3 mg/dL (0.15-1.2) 07/09/23 03:27 AST 40 U/L (0-40) 07/09/23 03:27 ALT 48 U/L (0-41) H 07/09/23 03:27 Alkaline Phosphatase 79 U/L (40-130) 07/09/23 03:27 Creatine Kinase 985 U/L (39-308) H* 07/07/23 03:40 Total Protein 6.0 g/dL (6.6-8.7) L 07/09/23 03:27 Albumin 3.1 g/dL (3.5-5.2) L 07/11/23 02:57 Globulin 3.0 g/dL (1.3-4.6) 07/09/23 03:27 Lipase 28 U/L (13-60) 07/06/23 20:05 Procalcitonin Cancelled 07/06/23 22:48 Urine Color Dark yellow (Yellow) 07/06/23 23:33 Urine Appearance Hazy (CLEAR) A 07/06/23 23:33 Urine pH 5 (5-7) 07/06/23 23:33 Ur Specific [place] 1.025 (1.005-1.030) 07/06/23 23:33 Urine Protein 1+ (Negative) H 07/06/23 23:33 Urine Glucose (UA) Norm (Normal) 07/06/23 23:33 Urine Ketones Negative (Negative) 07/06/23 23:33 Urine Blood 3+ (Negative) H 07/06/23 23:33 Urine Nitrate Negative (Negative) 07/06/23 23:33 Urine Bilirubin 1+ (Negative) H 07/06/23 23:33 Urine Urobilinogen Neg mg/dL (Negative) 07/06/23 23:33 Ur Leukocyte Esterase Negative (Negative) 07/06/23 23:33 Urine RBC 0-4 /hpf (0-2) H 07/06/23 23:33 Urine WBC 0-4 /hpf (0-5) H 07/06/23 23:33 Ur Squamous Epith Cells None /hpf (0-5) 07/06/23 23:33 Ur Transition Epith Cell 0-4 /hpf 07/06/23 23:33 Amorphous Sediment 3+ /hpf 07/06/23 23:33 Urine Bacteria 1+ /hpf (NONE) H 07/06/23 23:33 Coarse Granular Casts 0-4 /lpf H 07/06/23 23:33 Urine Mucus 3+ /hpf 07/06/23 23:33 Urine Sperm 1+ /hpf 07/06/23 23:33 Ur Random Sodium 67 mmol/L 07/07/23 05:30 Ur Random Potassium 27 mmol/L 07/07/23 05:30 Ur Random Chloride 10 mmol/L 07/07/23 05:30 Urine Opiates Screen Negative ng/mL (Negative) 07/06/23 23:33 Ur Barbiturates Screen Negative ng/mL (Negative) 07/06/23 23:33 Ur Phencyclidine Scrn Negative ng/mL (Negative) 07/06/23 23:33 Ur Amphetamines Screen Positive ng/mL (Negative) H 07/06/23 23:33 U Benzodiazepines Scrn Negative ng/mL (Negative) 07/06/23 23:33 Urine Cocaine Screen Negative ng/mL (Negative) 07/06/23 23:33 U Marijuana (THC) Screen Negative ng/mL (Negative) 07/06/23 23:33 Ethyl Alcohol < 10 mg/dL (0-10) 07/07/23 03:40 C. difficile (PCR) Negative (Negative) 07/07/23 19:15 Vitals Last Vital Signs Temp 98.3 F 07/11/23 03:52 Pulse 96 07/11/23 07:41 Resp 16 07/11/23 07:41 BP 145/92 07/11/23 07:41 Pulse Ox 97 07/11/23 07:41 O2 Del Method Room Air 07/11/23 07:41 Discharge Plan Discharge Patient Disposition: Home Condition: Stable Prescriptions: New doxycycline monohydrate 100 mg Tablet 100 mg PO BID 10 Days Qty: 20 0RF Thera 400 mcg Tablet 1 tab PO DAILY 30 Days Qty: 30 0RF Continued lisinopril 20 mg tablet 20 mg PO BID Discharge Orders: Discharge Order (Routine); Ordered 07/11/23 Ordered By: Joe Kaufman Referrals: Page Dominguez FNP [Referring] - 07/15/23 10:30 am Discharge Diet: Usual diet Discharge Activity: Resume usual activity Patient Instructions: Alcohol Intoxication, Doxycycline (By mouth), Methamp hetamine Abuse, How to Stop Smoking (DC), Rhabdomyolysis (DC), Abdominal Pain (ED), Opioid Safety Discharge Attestations Time Spent in Discharge Care*: less than 30 min Specific Discharge Activities: educating patient, documenting/other paperwork and evaluating patient/reviewing data Quality Metrics Clinical Quality Measures [ No reported AMI, CVA or VTE this stay] Coding Level of Care Code Acute Code for Chg Fwd Diagnoses Abdominal pain R10.84 Abdominal location: generalized Homelessness Z59.00 Diarrhea R19.7 Infestation by bed bug B88.8
--- NOTE | 2023-07-11 11:25 | PC.NURSE ---
Discharge paperwork has been explained to and signed by the patient. Patient is awaiting meds to beds and transport.
[2023-07-11 11:47] VITALS: BP 142/90; PULSE 92; RESP 17; TEMP 36.8; O2SAT 98
--- NOTE | 2023-07-11 13:09 | PC.NURSE ---
Medicaid ride will be here at 1430. This nurse updated patient on discharge disposition.
[2023-07-11 14:47] VITALS: BP 142/90; PULSE 92; RESP 17; TEMP 36.8; O2SAT 98
[2023-07-11 15:14] LABS: Methicillin-Resist S.aureu PCR DETECTED (NOT DETECTED)
[2023-07-11 15:48] LABS: Lyme AB Screen <0.90 index
[2023-07-12 17:19] LABS: RMSF IGG NOT DETECTED; RMSF IGM NOT DETECTED
[2023-07-14 21:20] LABS: E. Chaffeensis AB IGG <1:64; E. Chaffeensis AB IGM <1:20
[2023-08-10 18:07] LABS: Osmolality Serum 317
== END 2023-07-11 14:48 | disposition home or self-care (01) | DRG 683 ==
LOC: ER 22:04 → CSU 23:23 → ICU 07-07 06:21 → MEDSURG 07-08 18:13
PROVIDERS: Admitting Provider Internal Medicine; Emergency Provider Internal Medicine; PCP Family Medicine; Visit Provider Student in an Organized Health Care Education/Training Program
DX: N17.9 Acute kidney failure, unspecified (principal); E87.1 Hypo-osmolality and hyponatremia; E87.20 Acidosis, unspecified; Z59.00 Homelessness unspecified; M62.82 Rhabdomyolysis; R10.9 Unspecified abdominal pain; R19.7 Diarrhea, unspecified; Z20.7 Contact with and (suspected) exposure to pediculosis, acariasis and other infestations; R82.5 Elevated urine levels of drugs, medicaments and biological substances; F17.210 Nicotine dependence, cigarettes, uncomplicated; I10 Essential (primary) hypertension; E87.6 Hypokalemia; E83.39 Other disorders of phosphorus metabolism; F15.90 Other stimulant use, unspecified, uncomplicated; F10.90 Alcohol use, unspecified, uncomplicated
CPT/HCPCS: 12345; 36415; 51702; 71250; 71275; 74018; 74176; 76770; 80053; 80069; 80306; 80307; 81001; 82436; 82550; 83605; 83690; 83735; 83930; 84100; 84133; 84145; 84300; 85007; 85025; 85378; 86618; 86666; 86757; 87040; 87045; 87427; 87449; 87493; 87641; 92610; 93005; 93970; 96361; 96372; 96374; 96376; 99285; C9113; J0360; J0696; J1650; J2060; J2405; J2543; J3370; J3411; J3490; J7030; J7042; J7070; Q3014; Q9967

== ENCOUNTER 2024-11-19 12:30 | Outpatient (CLI) | payer MEDICAID, SELFPAY ==
--- NOTE | 2024-11-19 12:36 | US_ITS ---
WS: [id number] ULTRASOUND SOFT TISSUES RIGHT inguinal canal HISTORY: PAINFUL BULGE PRESENT R INGUINAL REGION COMPARISON: CT 07/07/2023 TECHNIQUE: 2-D and color Doppler imaging is submitted. Normal-appearing RIGHT inguinal canal on early imaging. During Valsalva maneuver there is a loop of bowel that extends deep into the inguinal canal. There is no obstruction or incarceration. No fluid within the inguinal canal. US/US soft tissue/extremity [id number] IMPRESSION: RIGHT inguinal canal hernia. During Valsalva there is a loop of GI tract that e xtends deep within the inguinal canal. There is no incarceration and no fluid i n the hernia sac. Recommend follow-up with general surgery.
== END 2024-11-19 12:31 | disposition home or self-care (01) ==
PROVIDERS: PCP Family Medicine
DX: R19.09 Other intra-abdominal and pelvic swelling, mass and lump (principal); K40.90 Unilateral inguinal hernia, without obstruction or gangrene, not specified as recurrent
CPT/HCPCS: 76882

== ENCOUNTER → 2024-12-03 10:33 | Outpatient (BNVA) | payer MEDICAID, SELFPAY | PROVIDERS: PCP Family Medicine; Visit Provider Student in an Organized Health Care Education/Training Program | DX: K40.90 Unilateral inguinal hernia, without obstruction or gangrene, not specified as recurrent (principal) | CPT/HCPCS: 99203 ==